=== PATIENT | male | born 1950 | race African-American/Black ===

== ENCOUNTER → 2020-08-23 15:43 | Outpatient (BNVA) | payer MEDICARE, MEDICAID, SELFPAY | PROVIDERS: PCP Internal Medicine; Referring Provider Internal Medicine; Visit Provider Urology | DX: Z76.89 Persons encountering health services in other specified circumstances (principal) | CPT/HCPCS: Q3014 ==

== ENCOUNTER → 2021-02-21 14:56 | Outpatient (BNVA) | payer MEDICARE, MEDICAID, SELFPAY | PROVIDERS: PCP Internal Medicine; Visit Provider Urology | DX: Z13.89 Encounter for screening for other disorder (principal) | CPT/HCPCS: 99212 ==

== ENCOUNTER → 2021-08-29 15:34 | Outpatient (BNVA) | payer MEDICARE, MEDICAID, SELFPAY | PROVIDERS: PCP Internal Medicine; Visit Provider Urology | CPT/HCPCS: Q3014 ==

== ENCOUNTER → 2022-03-09 13:12 | Outpatient (BNVA) | payer OTHER, MEDICAID, SELFPAY | PROVIDERS: PCP Internal Medicine; Visit Provider Urology | DX: E29.1 Testicular hypofunction (principal); N52.9 Male erectile dysfunction, unspecified | CPT/HCPCS: 99212 ==

== ENCOUNTER → 2022-09-18 08:29 | Outpatient (BNVA) | payer OTHER, MEDICAID, SELFPAY | PROVIDERS: PCP Internal Medicine; Visit Provider Urology | DX: E11.69 Type 2 diabetes mellitus with other specified complication (principal); N52.1 Erectile dysfunction due to diseases classified elsewhere | CPT/HCPCS: Q3014 ==

== ENCOUNTER → 2023-03-26 13:18 | Outpatient (BNVA) | payer OTHER, SELFPAY | PROVIDERS: PCP Internal Medicine; Visit Provider Urology | DX: E11.69 Type 2 diabetes mellitus with other specified complication (principal); E29.1 Testicular hypofunction; N52.1 Erectile dysfunction due to diseases classified elsewhere | CPT/HCPCS: 99212 ==

== ENCOUNTER 2023-09-24 15:21 | Outpatient (AMB) | payer OTHER, SELFPAY ==
--- NOTE | 2023-09-24 15:28 | MHC.OFFVIS ---
Intake Intake Visit Reasons: 6m/labs(set) Allergies lisinopril Allergy (Mild, Verified 03/26/23 13:32) coughing Medication List - Last Reconciled 09/24/23 by Wilbert Hernandez MD amlodipine 10 mg PO DAILY aspirin 81 mg PO DAILY blood sugar diagnostic As directed brimonidine-timolol 0.2-0.5 % 1 drp ophthalmic (eye) BID cholecalciferol (vitamin D3) 50 mcg PO DAILY cholecalciferol (vitamin D3) 50 mcg PO DAILY dapagliflozin propanediol (Farxiga) 10 mg PO DAILY ferrous sulfate (FeroSul) 0 mg PO flu vac 2019 [id number](PF) 60 mcg (15 mcg x 4)/0.5 mL 0.5 mL IM DIRECTED folic acid 1 mg PO DAILY furosemide 20 mg PO Q OTHER DAY ketorolac 0.5% 0 drps ophthalmic (eye) lancets As directed losartan 25 mg PO DAILY losartan 50 mg PO DAILY metformin 1,000 mg PO BID metoprolol succinate ER 25 mg PO DAILY naproxen 500 mg PO BID rosuvastatin 10 mg PO BEDTIME sitagliptin phosphate 50 mg PO DAILY spironolactone 25 mg PO DAILY tadalafil 5 mg PO DAILY 90 days tadalafil 20 mg PO ONCE PRN 30 days testosterone 100 mg transdermal DAILY 30 days HPI HPI Comments History of Present Illness Details Mike is a very pleasant male. He is a patient of Dr. Sullivan. He is seen for the following urologic conditions - hypogonadism - erectile dysfunction in setting of diabetes Telemedicine Evaluation 15 min Consultation [employer] Tato Video attempted Follow-up from daily tadalafil Improved erections Continued benefit from testosterone Stable with current 2 packets of testosterone daily Hypogonadism:?T stable. ?He presents today for further evaluation and followup of his hypogonadism. ?Initial symptoms include? erectile dysfunction? Yes ? decreased libido? Yes ? change in mood/depression? Yes ? in muscle size/strength? Yes ? increased fatigue/malaise? Yes ? increased abdominal fat? No ? tender breasts/gynecomastia? No ? hair loss? No ? osteopenia? No ?Associate conditions include? chronic pain with opioid use? Yes ?Laboratory results testosterone 11/06 - 83 ? 07/07 - testosterone 283, PSA 1.3 ? 12/08 , testosterone 290, PSA 0.9 ? 06/07 , testosterone 301, PSA 0.6, 12/09 T 694, PSA 1.0, HCT 39, 06/08 T 500 PSA 1.0 ? 01/07 T 650 PSA 1.0, 08/09 T 420 PSA 1.2, 02/08 T431 PSA 1.6, 08/10 T 310, 1.4, 01/09 T 240 P 1.8, 08/11 T 386 P 1.5, 02/10 600 1.2 42, 09/12 390 1.5 37 ?Current therapy includes gel/cream exogenous testosterone ? - patch - not interested in injectable ? - Exogenous patch causing scarring to skin ? - 06/07 increase to 2 packets. 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 ?Therapeutic plan continue current medication with laboratories? Erectile dysfunction: He presents today for for continued evaluation and management of erectile dysfunction. Symptoms have been present for/since many years. Current treatment includes Viagra/sildenafil. Treatment side effects include none. Prior therapies include oral medications. At this time he experiences erections are partial and adequate for vaginal penetration. Associated problems hypertension Yes diabetes Yes - multi oral agent dyslipidemia Yes - low intensity Overall he is satisfied with the current management. [facility] Medical History Glaucoma Chronic back pain Diabetes mellitus, type II Hyperlipidemia Hypogonadism in male Review of Systems Const All systems reviewed & are unremarkable except as noted in HPI and below Reports no additional complaints Resp Reports no additional complaints GI Reports no additional complaints Reports as per HPI Musc Reports no additional complaints Physical Exam Telemedicine evaluation Appropriate responses Regular breathing rate and rhythm HEENT Head: Yes normal to inspection Ears: hearing grossly normal bilaterally Eyes General: appearance normal, both eyes and all related structures Neck Neck: Yes normal visual inspection Chest Chest palpation & inspection: normal inspection of the chest Resp Effort & Inspection: normal respiratory effort and able to speak in complete sentences Assessment & Plan Assessment & Plan (1) Hypogonadism in male: Code(s): E29.1 - Testicular hypofunction (2) Erectile dysfunction associated with type 2 diabetes mellitus: Code(s): E11.69 - Type 2 diabetes mellitus with other specified complication; N52.1 - Erectile dysfunction due to diseases classified elsewhere Plan Renewal medications Six month follow-up labs Orders: Orders Prostate Specific Antigen 6 Months E29.1 - Testicular hypofunction Testosterone, Total 6 Months E29.1 - Testicular hypofunction Complete Blood Count no Diff 6 Months E29.1 - Testicular hypofunction Medications: Refilled tadalafil 5 mg PO DAILY 90 tabs 1RF sexual activity 90 days E11.69 - Type 2 diabetes mellitus with other specified complication, N52.1 - Erectile dysfunction due to diseases classified elsewhere tadalafil 20 mg PO ONCE PRN 30 tabs 1RF sexual activity 30 days E11.69 - Type 2 diabetes mellitus with other specified complication, N52.1 - Erectile dysfunction due to diseases classified elsewhere testosterone 100 mg transdermal DAILY 60 packets 5RF 30 days E29.1 - Testicular hypofunction Patient Instructions: Imaging studies, laboratory and physical exam results were discussed and reviewed in detail. No major barriers to patient understanding were identified. An opportunity to ask questions regarding the treatment plan was provided. All questions were answered. The patient expressed understanding and agreement with the above treatment plan. The patient is aware they should contact our office by phone for worsening of their current condition or the appearance of new urologic symptoms. Compliance is encouraged with any medications and followup testing that is ordered. It is a privilege to participate in the urologic care of your patient. If you have any questions or concerns regarding treatment for the above conditions, or other urologic issues, please do not hesitate to contact me. The office telephone contact is [phone]. This note is constructed using voice recognition software. While every effort has been made to ensure accuracy color printer operator errors may have been included. Yours sincerely, Dr Wilbert Hernandez MD, [facility] - Urology Providers of Expert, Compassionate Care for the Genitourinary System Telehealth Telehealth Location of provider rendering services: practice address Location of patient: address on file Patient Identification confirmed using: Name, : Yes Telehealth method: video Patient verbally consented to treatment: Yes Patient verbally consented to billing insurance company: Yes Patient informed of any privacy concerns related to visit: Yes Coding Level of Care Code Tele Est Pt Level 3 (74130) Diagnoses Hypogonadism in male E29.1 Erectile dysfunction associated with type 2 diabetes mellitus E11.69; N52.1
== END 2023-09-24 16:30 ==
LOC: HO.HUSH 15:21
PROVIDERS: PCP Internal Medicine; Visit Provider Urology
DX: E29.1 Testicular hypofunction (principal); E11.69 Type 2 diabetes mellitus with other specified complication; N52.1 Erectile dysfunction due to diseases classified elsewhere
CPT/HCPCS: 99213

== ENCOUNTER → 2023-09-24 15:21 | Outpatient (BNVA) | payer OTHER, SELFPAY | PROVIDERS: PCP Internal Medicine; Visit Provider Urology ==

== ENCOUNTER 2024-04-17 11:29 | Outpatient (AMB) | payer OTHER, SELFPAY ==
--- NOTE | 2024-04-17 11:32 | MHC.OFFVIS ---
Intake Visit Reasons: 6M Labs(set) Intake Note: Patient is present for 6 month f/u and labs Urology Medication:tasalafil,testosterone Antibiotic Allergy:none Blood Thinner:aspirin Operations Superintendent Required: No Allergies lisinopril Allergy (Mild, Verified 04/17/24 11:34) coughing Medication List - Last Reconciled 04/17/24 by Wilbert Hernandez MD amlodipine 10 mg PO DAILY aspirin 81 mg PO DAILY blood sugar diagnostic As directed brimonidine-timolol 0.2-0.5 % 1 drp ophthalmic (eye) BID cholecalciferol (vitamin D3) 50 mcg PO DAILY cholecalciferol (vitamin D3) 50 mcg PO DAILY cyanocobalamin (vitamin B-12) 1,000 mcg PO DAILY dapagliflozin propanediol (Farxiga) 10 mg PO DAILY ferrous sulfate (FeroSul) 0 mg PO flu vac 2020 [id number](PF) 60 mcg (15 mcg x 4)/0.5 mL 0.5 mL IM DIRECTED folic acid 1 mg PO DAILY furosemide 20 mg PO Q OTHER DAY ketorolac 0.5% 0 drps ophthalmic (eye) lancets As directed losartan 25 mg PO DAILY losartan 50 mg PO DAILY metformin 1,000 mg PO BID metoprolol succinate ER 25 mg PO DAILY naproxen 500 mg PO BID rosuvastatin 10 mg PO BEDTIME sitagliptin phosphate 50 mg PO DAILY spironolactone 25 mg PO DAILY tadalafil 20 mg PO ONCE PRN 30 days tadalafil 5 mg PO DAILY 90 days testosterone 100 mg transdermal DAILY 30 days ticagrelor (Brilinta) 90 mg PO BID HPI Comments Details: Mike is a very pleasant male. He is a patient of Dr. Sullivan. He is seen for the following urologic conditions - hypogonadism - erectile dysfunction in setting of diabetes Six-month review Testosterone laboratories within appropriate target range Continues with 5 mg daily and 20 mg on demand tadalafil Stable with current 2 packets of testosterone daily Tells me his diabetes is stable Hypogonadism:?He presents today for further evaluation and followup of his hypogonadism. ?Initial symptoms include? erectile dysfunction? Yes ? decreased libido? Yes ? change in mood/depression? Yes ? in muscle size/strength? Yes ? increased fatigue/malaise? Yes ?Associate conditions include? chronic pain with opioid use? Yes ?Laboratory results testosterone 11/06 - 83 ? 07/07 - testosterone 283, PSA 1.3 ? 12/08 , testosterone 290, PSA 0.9 ? 06/07 , testosterone 301, PSA 0.6, 12/09 T 694, PSA 1.0, HCT 39, 06/08 T 500 PSA 1.0 ? 01/07 T 650 PSA 1.0, 08/09 T 420 PSA 1.2, 02/08 T431 PSA 1.6, 08/10 T 310, 1.4, 01/09 T 240 P 1.8, 08/11 T 386 P 1.5, 02/10 600 1.2 42, 09/12 390 1.5 37, 03/13 531 2.1 41 ?Current therapy includes gel/cream exogenous testosterone ? - patch - not interested in injectable ? - Exogenous patch causing scarring to skin ? - 06/07 increase to 2 packets. 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 ?Therapeutic plan continue current medication with laboratories? Erectile dysfunction: He presents today for for continued evaluation and management of erectile dysfunction. Symptoms have been present for/since many years. Current treatment includes Viagra/sildenafil. Treatment side effects include none. Prior therapies include oral medications. At this time he experiences erections are partial and adequate for vaginal penetration. Associated problems hypertension Yes diabetes Yes - multi oral agent dyslipidemia Yes - low intensity Overall he is satisfied with the current management. [facility] Medical History Glaucoma Chronic back pain Diabetes mellitus, type II Hyperlipidemia Hypogonadism in male Review of Systems Const Denies chills and Denies fever(s) Card Reports no additional complaints and Denies syncope Resp Denies cough GI Denies abdominal pain and Denies heartburn Reports as per HPI and Denies change in libido Neuro Denies syncope Psych Denies change in libido Endo Denies change in libido Physical Exam Const General: cooperative, healthy appearing, comfortable and no acute distress Orientation/consciousness: patient oriented x3 HEENT Face and sinus: Yes normal facial exam Mouth: moist mucous membranes Neck Neck: Yes normal visual inspection, Yes full ROM and Yes trachea midline Chest Chest palpation & inspection: normal inspection of the chest Resp Effort & Inspection: normal respiratory effort, able to speak in complete sentences and no respiratory distress GI Inspection: Yes normal to inspection Back/Spine/Pelvis Cervical Spine: normal cervical lordosis Thoracic/Lumbar Spine: thoracic and lumbar spine normal to inspection Skin General skin exam: no rashes or lesions noted Neuro General: patient oriented x3, gait normal, tone normal and moves all extremities Extrem General: Yes normal to inspection and Yes capillary refill normal Assessment & Plan Assessment & Plan (1) Hypogonadism in male: Code(s): E29.1 - Testicular hypofunction Category: Medical (2) Erectile dysfunction associated with type 2 diabetes mellitus: Code(s): E11.69 - Type 2 diabetes mellitus with other specified complication; N52.1 - Erectile dysfunction due to diseases classified elsewhere Category: Medical Plan Six-month follow-up lab work tele Orders: Orders Prostate Specific Antigen 6 Months E29.1 - Testicular hypofunction Testosterone, Total 6 Months E29.1 - Testicular hypofunction Complete Blood Count no Diff 6 Months E29.1 - Testicular hypofunction Patient Instructions: Imaging studies, laboratory and physical exam results were discussed and reviewed in detail. No major barriers to patient understanding were identified. An opportunity to ask questions regarding the treatment plan was provided. All questions were answered. The patient expressed understanding and agreement with the above treatment plan. The patient is aware they should contact our office by phone for worsening of their current condition or the appearance of new urologic symptoms. Compliance is encouraged with any medications and followup testing that is ordered. It is a privilege to participate in the urologic care of your patient. If you have any questions or concerns regarding treatment for the above conditions, or other urologic issues, please do not hesitate to contact me. The office telephone contact is [phone]. This note is constructed using voice recognition software. While every effort has been made to ensure accuracy service advisor errors may have been included. Yours sincerely, Dr Wilbert Hernandez MD, [facility] - Urology Providers of Expert, Compassionate Care for the Genitourinary System Coding Level of Care Code Est Pt Level 3 (83564) Diagnoses Hypogonadism in male E29.1 Erectile dysfunction associated with type 2 diabetes mellitus E11.69; N52.1
== END 2024-04-17 11:52 | disposition home or self-care (01) ==
LOC: HO.HUSH 11:29
PROVIDERS: PCP Internal Medicine; Visit Provider Urology
DX: E29.1 Testicular hypofunction (principal); E11.69 Type 2 diabetes mellitus with other specified complication; N52.1 Erectile dysfunction due to diseases classified elsewhere
CPT/HCPCS: 99213

== ENCOUNTER → 2024-04-17 11:29 | Outpatient (BNVA) | payer OTHER, SELFPAY | PROVIDERS: PCP Internal Medicine; Visit Provider Urology | DX: E29.1 Testicular hypofunction (principal); E11.69 Type 2 diabetes mellitus with other specified complication; N52.1 Erectile dysfunction due to diseases classified elsewhere | CPT/HCPCS: 99212 ==

== ENCOUNTER 2024-10-08 08:36 | Outpatient (AMB) | payer OTHER, SELFPAY ==
--- NOTE | 2024-10-08 08:37 | A.OFFVIS_ITS ---
Intake Visit Reasons: 6m/PSA/TESTO/LABS(set) Intake Note: Patient is present for 6M/PSA/TESTO/LABS Urology Medication:TADALAFIL,TESTOSTERONE,VITAMIN B12 Antibiotic Allergy:NONE Blood Thinner:ASPIRIN Band Instrument Maker Required: No Allergies lisinopril Allergy (Mild, Verified 10/08/24 08:38) coughing HPI Comments Details: Mike is a very pleasant male. He is a patient of Dr. Sullivan. He is seen for the following urologic conditions - hypogonadism - erectile dysfunction in setting of diabetes Six-month review Telemedicine Evaluation 15 min Consultation [employer] Tato Video Testosterone laboratories within appropriate target range Continues with 5 mg daily and 20 mg on demand tadalafil Stable with current 2 packets of testosterone daily Continue interval surveillance Hypogonadism:?He presents today for further evaluation and followup of his hypogonadism. ?Initial symptoms include? erectile dysfunction? Yes ? decreased libido? Yes ? change in mood/depression? Yes ? in muscle size/strength? Yes ? increased fatigue/malaise? Yes ?Associate conditions include? chronic pain with opioid use? Yes ?Laboratory results testosterone 11/06 - ? 07/07 - testosterone 283, PSA 1.3 ? 12/08 , testosterone 290, PSA 0.9 ? 06/07 , testosterone 301, PSA 0.6, 12/09 T 694, PSA 1.0, HCT 39, 06/08 T 500 PSA 1.0 ? 01/07 T 650 PSA 1.0, 08/09 T 420 PSA 1.2, 02/08 T431 PSA 1.6, 08/10 T 310, 1.4, 01/09 T 240 P 1.8, 08/11 T 386 P 1.5, 02/10 600 1.2 42, 09/12 390 1.5 37, 03/13 531 2.1 41, 10/13 T 400 F 12.5 1.8 ?Current therapy includes gel/cream exogenous testosterone ? - patch - not interested in injectable ? - Exogenous patch causing scarring to skin ? - 06/07 increase to 2 packets. 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 ?Therapeutic plan continue current medication with laboratories? Erectile dysfunction: He presents today for for continued evaluation and management of erectile dysfunction. Symptoms have been present for/since many years. Current treatment includes Viagra/sildenafil. Treatment side effects include none. Prior therapies include oral medications. At this time he experiences erections are partial and adequate for vaginal penetration. Associated problems hypertension Yes diabetes Yes - multi oral agent dyslipidemia Yes - low intensity Overall he is satisfied with the current management. [facility] Medical History Glaucoma Chronic back pain Diabetes mellitus, type II Hyperlipidemia Hypogonadism in male Review of Systems Const All systems reviewed & are unremarkable except as noted in HPI and below Reports no additional complaints Resp Reports no additional complaints GI Reports no additional complaints Reports as per HPI Musc Reports no additional complaints Physical Exam Telemedicine evaluation Appropriate responses Regular breathing rate and rhythm HEENT Head: Yes normal to inspection Ears: hearing grossly normal bilaterally Eyes General: appearance normal, both eyes and all related structures Neck Neck: Yes normal visual inspection Chest Chest palpation & inspection: normal inspection of the chest Resp Effort & Inspection: normal respiratory effort and able to speak in complete sentences Telehealth Telehealth Telehealth Platform: [employer] Location of provider rendering services: practice address Location of patient: address on file Patient Identification confirmed using: Name, : Yes Telehealth method: video Patient verbally consented to treatment: Yes Patient verbally consented to billing insurance company: Yes Patient informed of any privacy concerns related to visit: Yes Minutes spent on Phone/Video with Pt.: 15 Assessment & Plan Assessment & Plan (1) Erectile dysfunction associated with type 2 diabetes mellitus: Code(s): E11.69 - Type 2 diabetes mellitus with other specified complication; N52.1 - Erectile dysfunction due to diseases classified elsewhere Category: Medical (2) Hypogonadism in male: Code(s): E29.1 - Testicular hypofunction Category: Medical Plan Refill medications Six-month follow-up lab work Medications: Refilled tadalafil 5 mg PO DAILY 90 days 90 tabs 1RF sexual activity E11.69 - Type 2 diabetes mellitus with other specified complication, N52.1 - Erectile dysfunction due to diseases classified elsewhere testosterone 100 mg transdermal DAILY 30 days 60 packets 5RF E29.1 - Testicular hypofunction tadalafil 20 mg PO ONCE 30 days PRN 30 tabs 1RF sexual activity E11.69 - Type 2 diabetes mellitus with other specified complication, N52.1 - Erectile dysfunction due to diseases classified elsewhere Patient Instructions: Imaging studies, laboratory and physical exam results were discussed and reviewed in detail. No major barriers to patient understanding were identified. An opportunity to ask questions regarding the treatment plan was provided. All questions were answered. The patient expressed understanding and agreement with the above treatment plan. The patient is aware they should contact our office by phone for worsening of their current condition or the appearance of new urologic symptoms. Compliance is encouraged with any medications and followup testing that is ordered. It is a privilege to participate in the urologic care of your patient. If you have any questions or concerns regarding treatment for the above conditions, or other urologic issues, please do not hesitate to contact me. The office telephone contact is [phone]. This note is constructed using voice recognition software. While every effort has been made to ensure accuracy supervisor microfilm duplicating unit errors may have been included. Yours sincerely, Dr Wilbert Hernandez MD, [facility] - Urology Providers of Expert, Compassionate Care for the Genitourinary System Coding Level of Care Code Tele Est Pt Level 3 (28185) Diagnoses Erectile dysfunction associated with type 2 diabetes mellitus E11.69; N52.1 Hypogonadism in male E29.1
== END 2024-10-08 15:08 | disposition home or self-care (01) ==
LOC: HO.HUSH 08:36
PROVIDERS: PCP Internal Medicine; Visit Provider Urology
DX: E11.69 Type 2 diabetes mellitus with other specified complication (principal); N52.1 Erectile dysfunction due to diseases classified elsewhere; E29.1 Testicular hypofunction
CPT/HCPCS: 99213

== ENCOUNTER 2025-04-15 11:21 | Outpatient (AMB) | payer OTHER, SELFPAY ==
--- NOTE | 2025-04-15 11:28 | MHC.OFFVIS ---
Intake Visit Reasons: 6m followup/PSA labs Intake Note: Patient is present for 6M/LABS Urology Medication:TESTOSTERONE,TADALAFIL,VITAMIN B12 Antibiotic Allergy:NONE Blood Thinner:ASPIRIN Dyno Technician Required: No Allergies lisinopril Allergy (Mild, Verified 04/15/25 11:29) coughing HPI Comments Details: Mike is a very pleasant male. He is a patient of Dr. Sullivan. He is seen for the following urologic conditions - hypogonadism - erectile dysfunction in setting of diabetes Six-month review Testosterone laboratories within appropriate target range Continues with 5 mg daily and 20 mg on demand tadalafil Stable with current 2 packets of testosterone daily Continue interval surveillance Hypogonadism:?He presents today for further evaluation and followup of his hypogonadism. ?Initial symptoms include? erectile dysfunction? Yes ? decreased libido? Yes ? change in mood/depression? Yes ? in muscle size/strength? Yes ? increased fatigue/malaise? Yes ?Associate conditions include? chronic pain with opioid use? Yes ?Laboratory results testosterone 11/06 - 83 ? 07/07 - testosterone 283, PSA 1.3 ? 12/08 , testosterone 290, PSA 0.9 ? 06/07 , testosterone 301, PSA 0.6, 12/09 T 694, PSA 1.0, HCT 39, 06/08 T 500 PSA 1.0 ? 01/07 T 650 PSA 1.0, 08/09 T 420 PSA 1.2, 02/08 T431 PSA 1.6, 08/10 T 310, 1.4, 01/09 T 240 P 1.8, 08/11 T 386 P 1.5, 02/10 600 1.2 42, 09/12 390 1.5 37, 03/13 531 2.1 41, 10/13 T 400 F 12.5 1.8, 04/14 360 2.2 38 ?Current therapy includes gel/cream exogenous testosterone ? - patch - not interested in injectable ? - Exogenous patch causing scarring to skin ? - 06/07 increase to 2 packets. 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 ?Therapeutic plan continue current medication with laboratories? Erectile dysfunction: He presents today for for continued evaluation and management of erectile dysfunction. Symptoms have been present for/since many years. Current treatment includes Viagra/sildenafil. Treatment side effects include none. Prior therapies include oral medications. At this time he experiences erections are partial and adequate for vaginal penetration. Associated problems hypertension Yes diabetes Yes - multi oral agent dyslipidemia Yes - low intensity Overall he is satisfied with the current management. [facility] Medical History Glaucoma Chronic back pain Diabetes mellitus, type II Hyperlipidemia Hypogonadism in male Review of Systems Const Denies chills and Denies fever(s) Card Reports no additional complaints and Denies syncope Resp Denies cough GI Denies abdominal pain and Denies heartburn Reports as per HPI and Denies change in libido Neuro Denies syncope Psych Denies change in libido Endo Denies change in libido Physical Exam Const General: cooperative, healthy appearing, comfortable and no acute distress Orientation/consciousness: patient oriented x3 HEENT Face and sinus: Yes normal facial exam Mouth: moist mucous membranes Neck Neck: Yes normal visual inspection, Yes full ROM and Yes trachea midline Chest Chest palpation & inspection: normal inspection of the chest Resp Effort & Inspection: normal respiratory effort, able to speak in complete sentences and no respiratory distress GI Inspection: Yes normal to inspection Back/Spine/Pelvis Cervical Spine: normal cervical lordosis Thoracic/Lumbar Spine: thoracic and lumbar spine normal to inspection Skin General skin exam: no rashes or lesions noted Neuro General: patient oriented x3, gait normal, tone normal and moves all extremities Extrem General: Yes normal to inspection and Yes capillary refill normal Assessment & Plan Assessment & Plan (1) Erectile dysfunction associated with type 2 diabetes mellitus: Code(s): E11.69 - Type 2 diabetes mellitus with other specified complication; N52.1 - Erectile dysfunction due to diseases classified elsewhere Category: Medical (2) Hypogonadism in male: Code(s): E29.1 - Testicular hypofunction Category: Medical Plan Six-month follow-up lab work Orders: Orders Testosterone, Total 6 Months E29.1 - Testicular hypofunction Blood Urea Nitrogen 6 Months E29.1 - Testicular hypofunction Prostate Specific Antigen 6 Months E29.1 - Testicular hypofunction Medications: Refilled testosterone 100 mg transdermal DAILY 60 packets 5RF 30 days E29.1 - Testicular hypofunction Patient Instructions: This note is constructed using voice recognition software. While every effort has been made to ensure accuracy client account representative errors may have been included. Imaging studies, laboratory and physical exam results were discussed and reviewed in detail. No major barriers to patient understanding were identified. An opportunity to ask questions regarding the treatment plan was provided. All questions were answered. The patient expressed understanding and agreement with the above treatment plan. The patient is aware they should contact our office by phone for worsening of their current condition or the appearance of new urologic symptoms. Compliance is encouraged with any medications and followup testing that is ordered. It is a privilege to participate in the urologic care of your patient. If you have any questions or concerns regarding treatment for the above conditions, or other urologic issues, please do not hesitate to contact me. The office telephone contact is [phone]. Sincerely, Dr Wilbert Hernandez MD, [facility] - Urology Compassionate Specialist Care for the Genitourinary System Coding Level of Care Code Est Pt Level 3 (92340) Complex EM visit Add On G2211 Diagnoses Erectile dysfunction associated with type 2 diabetes mellitus E11.69; N52.1 Hypogonadism in male E29.1
== END 2025-04-15 11:59 | disposition home or self-care (01) ==
LOC: HO.HUSH 11:21
PROVIDERS: PCP Internal Medicine; Visit Provider Urology
DX: E11.69 Type 2 diabetes mellitus with other specified complication (principal); N52.1 Erectile dysfunction due to diseases classified elsewhere; E29.1 Testicular hypofunction
CPT/HCPCS: 99213; G2211

== ENCOUNTER → 2025-04-15 11:21 | Outpatient (BNVA) | payer OTHER, SELFPAY | PROVIDERS: PCP Internal Medicine; Visit Provider Urology | DX: E29.1 Testicular hypofunction (principal) | CPT/HCPCS: 99212 ==

== ENCOUNTER 2025-10-12 09:13 | Outpatient (AMB) | payer OTHER, SELFPAY ==
--- OUTSIDE RECORDS SUMMARY | 2024-07-23 07:14 | XMS_ITS | Encounter Summary ---
Author Organization [facility] Address [address] [place] [address] Care Team Providers Care Leasing Coordinator Name Role Phone Jules Sullivan MD Primary Care Provider [phone] Encounter Details Date Type Department Care Team (Late st Contact Info) Description 07/23/2024 8:14 AM EDT Hospital Encounter TH HISTORIC ENCOUNTERS [facility] CONVERSION ONLY Social History Tobacco Use Types Packs/Day Years Used Date Smoking Tobacco: Every Day Cigarettes Smokeless Tobacco: Never Alcohol Use Standard Drinks/Week Comments Yes 0 (1 standard drink = 0.6 oz pur e alcohol) occasional Interpersonal Safety Answer Date Record ed Physical Abuse Unrecognized value 12/04/2024 Verbal Abuse Unrecognized value 12/04/2024 Sex and Gender Information Value Date Recorded Sex Assigned at Male 12/03/2024 8:32 AM EST Legal Sex Male 9:57 AM EST Gender Identity Male 12/03/2024 8:32 AM EST Sexual Orientation Straight 12/03/2024 8: 32 AM EST documented as of this encounter Last Filed Vital Signs Vital Sign Reading Time Taken Comments Blood Pressure - - Pulse - - Temperature - - Respiratory Rate - - Oxygen Saturation - - Inhaled Oxygen Concentration - - Weight 99.3 kg (219 lb) 11/22/2023 9:08 AM EST Height 175.3 cm (5' 9 ) 11/22/2023 9:08 AM EST Body Mass Index 32.34 11/22/2023 9:08 AM EST documented in this encounter Progress Notes * Historical, Notes Results - 07/23/2024 8:30 AM EDT Arrived amb for B12 inj, stable assessment. B12 administered into RIGHT arm, well tolerated, reminder given for next appt. Left amb, stable at D/C. documented in this encounter Plan of Treatment Upcoming Encounters Date Type Department Care Team (Late st Contact Info) Description 10/27/2025 8:30 AM EST Appointment [facility] [address] [facility] 2nd [place] [phone] 11/24/2025 9:00 AM EST Office Visit [facility] Hematology Oncology [address] [place] [phone] Shira-Blanca Clarke MD [address] [place] [phone] 01/20/2026 8:00 AM EDT Ancillary Procedure [facility] [address] [facility] [address] [place] [phone] documented as of this encounter Visit Diagnoses Not on filedocumented in this encounter Care Teams Leasing Coordinator Relationship Specialty Start Date End Date Jules Sullivan MD [address] [place] [id number] PCP - General Internal Medicine 06/20/17 documented as of this encounter
--- OUTSIDE RECORDS SUMMARY | 2024-08-20 07:18 | XMS_ITS | Encounter Summary ---
Author Organization [facility] Address [address] [place] [address] Care Team Providers Care Process Tech Name Role Phone Jules Sullivan MD Primary Care Provider [phone] Encounter Details Date Type Department Care Team (Late st Contact Info) Description 08/20/2024 8:18 AM EDT Hospital Encounter TH HISTORIC ENCOUNTERS [...] Progress Notes * Historical, Notes Results - 08/20/2024 8:28 AM EDT 0828- Patient arrives, ambulatory to unit using a cane for monthly B12 injection. He has been??feeling well. He offers no concerns or complaints today and says his energy, appetite, etc. have been good. Injection released from treatment plan to pharmacy. Patient given a gingerale per his request while awaiting the injection to be verified by pharmacy. 0839-??B12 injection given into the left upper arm??via deep subcutaneous route. Patient tolerated this well. Band-aid applied to site. Next??monthly??appointment??booked previously but, re-printed and given to patient upon discharge per his request. Of note, this was booked a week late due to patient being due on and a busy holiday week in the infusion room. He left the unit stable,using cane with steady gait visualized upon discharge. documented in this encounter Plan of Treatment Upcoming Encounters Date Type Department Care Team (Late st Contact Info) Description 10/27/2025 8:30 AM EST Appointment [facility] [address] [phone] 11/24/2025 9:00 AM EST Office Visit [facility] Hematology Oncology [address] [place] [phone] Shira-Blanca Clarke MD [address] [place] [address] 01/20/2026 8:00 AM EDT Ancillary Procedure [facility] [address] [facility] [address] [place] [address] documented as of this encounter Visit Diagnoses Not on filedocumented in this encounter Care Teams Process Tech Relationship Specialty Start Date End Date Jules Sullivan MD [address] [place] [id number] PCP - General Internal Medicine 06/20/17 documented as of this encounter
--- NOTE | 2025-10-12 09:37 | MHC.OFFVIS ---
Intake Visit Reasons: 6m/ Labs/ SET ( NO UA ) Intake Note: Patient is present for 6M follow up Urology Medication:TESTOSTERONE,TADALAFIL, Antibiotic Allergy:NONE Blood Thinner:ASPIRIN Labs done 10/01/25: Total Testosterone 580, BUN 20 Senior Internet Sales Consultant Required: No Accompanied by: Self / Same As Patient Allergies lisinopril Allergy (Mild, Verified 10/12/25 09:39) coughing HPI Comments Details: Mike is a very pleasant male. He is a patient of Dr. Sullivan. He is seen for the following urologic conditions - hypogonadism - erectile dysfunction in setting of diabetes Six-month review - all stable Testosterone laboratories within appropriate target range Continues with 5 mg daily and 20 mg on demand tadalafil Stable with current 2 packets of testosterone daily Continue interval surveillance Hypogonadism:?He presents today for further evaluation and followup of his hypogonadism. ?Initial symptoms include? erectile dysfunction? Yes ? decreased libido? Yes ? change in mood/depression? Yes ? in muscle size/strength? Yes ? increased fatigue/malaise? Yes ?Associate conditions include? chronic pain with opioid use? Yes ?Laboratory results testosterone 11/06 - ? 07/07 - testosterone 283, PSA 1.3 ? 12/08 , testosterone 290, PSA 0.9 ? 06/07 , testosterone 301, PSA 0.6, 12/09 T 694, PSA 1.0, HCT 39, 06/08 T 500 PSA 1.0 ? 01/07 T 650 PSA 1.0, 08/09 T 420 PSA 1.2, 02/08 T431 PSA 1.6, 08/10 T 310, 1.4, 01/09 T 240 P 1.8, 08/11 T 386 P 1.5, 02/10 600 1.2 42, 09/12 390 1.5 37, 03/13 531 2.1 41, 10/13 T 400 F 12.5 1.8, 04/14 360 2.2 38 - 10/14 T 580 ?Current therapy includes gel/cream exogenous testosterone ? - patch - not interested in injectable ? - Exogenous patch causing scarring to skin ? - 06/07 increase to 2 packets. 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 ?Therapeutic plan continue current medication with laboratories? Erectile dysfunction: He presents today for for continued evaluation and management of erectile dysfunction. Symptoms have been present for/since many years. Current treatment includes Viagra/sildenafil. Treatment side effects include none. Prior therapies include oral medications. At this time he experiences erections are partial and adequate for vaginal penetration. Associated problems hypertension Yes diabetes Yes - multi oral agent dyslipidemia Yes - low intensity Overall he is satisfied with the current management. [facility] Medical History Glaucoma Chronic back pain Diabetes mellitus, type II Hyperlipidemia Hypogonadism in male Review of Systems Const Denies chills and Denies fever(s) Card Reports no additional complaints and Denies syncope Resp Denies cough GI Denies abdominal pain and Denies heartburn Reports as per HPI and Denies change in libido Neuro Denies syncope Psych Denies change in libido Endo Denies change in libido Physical Exam Const General: cooperative, healthy appearing, comfortable and no acute distress Orientation/consciousness: patient oriented x3 HEENT Face and sinus: Yes normal facial exam Mouth: moist mucous membranes Neck Neck: Yes normal visual inspection, Yes full ROM and Yes trachea midline Chest Chest palpation & inspection: normal inspection of the chest Resp Effort & Inspection: normal respiratory effort, able to speak in complete sentences and no respiratory distress GI Inspection: Yes normal to inspection Back/Spine/Pelvis Cervical Spine: normal cervical lordosis Thoracic/Lumbar Spine: thoracic and lumbar spine normal to inspection Skin General skin exam: no rashes or lesions noted Neuro General: patient oriented x3, gait normal, tone normal and moves all extremities Extrem General: Yes normal to inspection and Yes capillary refill normal Assessment & Plan Assessment & Plan (1) Erectile dysfunction associated with type 2 diabetes mellitus: Code(s): E11.69 - Type 2 diabetes mellitus with other specified complication; N52.1 - Erectile dysfunction due to diseases classified elsewhere Category: Medical (2) Hypogonadism in male: Code(s): E29.1 - Testicular hypofunction Category: Medical Plan Six-month follow-up lab work Continue interval surveillance Orders: Orders Prostate Specific Antigen 5 Months E29.1 - Testicular hypofunction Hematocrit 5 Months E29.1 - Testicular hypofunction Testosterone, Total 5 Months E29.1 - Testicular hypofunction Medications: Refilled tadalafil 5 mg PO DAILY 90 tabs 1RF sexual activity 90 days E11.69 - Type 2 diabetes mellitus with other specified complication, N52.1 - Erectile dysfunction due to diseases classified elsewhere testosterone 100 mg transdermal DAILY 60 packets 5RF 30 days E29.1 - Testicular hypofunction Patient Instructions: This note is constructed using voice recognition software. While every effort has been made to ensure accuracy winery worker errors may have been included. Imaging studies, laboratory and physical exam results were discussed and reviewed in detail. No major barriers to patient understanding were identified. An opportunity to ask questions regarding the treatment plan was provided. All questions were answered. The patient expressed understanding and agreement with the above treatment plan. The patient is aware they should contact our office by phone for worsening of their current condition or the appearance of new urologic symptoms. Compliance is encouraged with any medications and followup testing that is ordered. It is a privilege to participate in the urologic care of your patient. If you have any questions or concerns regarding treatment for the above conditions, or other urologic issues, please do not hesitate to contact me. The office telephone contact is [phone]. Sincerely, Dr Wilbert Hernandez MD, [facility] - Urology Compassionate Specialist Care for the Genitourinary System Coding Level of Care Code Est Pt Level 3 (91881) Add On Problem Visit Only Diagnoses Erectile dysfunction associated with type 2 diabetes mellitus E11.69; N52.1 Hypogonadism in male E29.1
--- OUTSIDE RECORDS SUMMARY | 2025-10-12 09:52 | XMS_ITS | Continuity of Care Document ---
Author Organization [facility] Address [address] [place] [address] Assessment No assessment recorded. Plan of Treatment Reminders Order Date Submit Date Provider Last Modified By Organization Details Last Modified Time Details Appointments Routine 15 2025 09:00A M Jarocho Haile DPM Not available Not available Not available Lab None recorded . Referral None recorded . Procedures None recorded . Surgeries None recorded . Imaging None recorded . Medication Orders None recorded . Patient TargetsNo targets recorded. Patient InstructionsNo instructions recorded. Reason for Referral None Reported. Problems Name Problem SNOMED Code Status Onset Date Resolution Date Notes Provider Name and Address Organization Details Recorded Time Diabetic foot examination Active 2024 Mary Rios [facility] 08:49:01 Peripheral neuropathy due to type 2 diabetes mellitus 4734055328441 Active 2024 Jarocho Haile DPM [address], [place], [address], [facility] 09:32:46 Onychomycos is 751880891 Active 2024 Jarocho Haile DPM [address], [place], [address], [facility] 09:32:48 Callosity 119677787 Active 2024 Jarocho Haile DPM [address], [place], [address], [facility] 5 09:32:55 Problem Notes None recorded. Procedures Surgical History Date Name Laterality Status Provider Name and Address Organization Details Recorded Time Nail Debridement completed Jarocho Haile, ARSALAN [address] [place], [address], [facility] 09/23/2025 09:32:38 total replacement of hip completed Mary Rios [facility] 09/23/2025 08:50:15 Imaging Results None recorded. Procedure Notes None recorded. Medical Equipment None Reported. Allergies Allergen ID Allergen Name Allergen Category Reaction Reaction Severity Criticality Documentation Date Start Date Code Code System Note Provider Name and Address Organization Details Recorded Time 303 lisinopri l medicatio n Not available Not available high 09/23/20252016 95977 RxNorm Other React ion(s ): Other (See Comme nts) cough Not Available nicholas - External Data Service - prod 08:39:17 Medications Name Sig Start Date Stop Date Status Note LastModified by Organization Details LastModified Time losartan 50 mg tablet TAKE 1 TABLET BY MOUTH EVERY DAY active Not Available Not Available No t Available metoprolol succinate ER 50 mg tablet,exten ded release 24 hr TAKE 1 TABLET BY MOUTH EVERY DAY active Not Available Not Available No t Available FreeStyle Lancets 28 gauge USE DIRECTED TO CHECK BLOOD SUAGR EVERY DAY active Not Available Not Available No t Available cyanocobalam in (vit B-12) 1,000 mcg tablet TAKE 1 TABLET BY MOUTH DAILY active Not Available Not Available Not Available aspirin 81 mg tablet,delay ed release TAKE 1 TABLET BY MOUTH EVERY DAY active Not Available Not Available No t Available spironolacto ne 25 mg tablet TAKE 1 TABLET BY MOUTH DAILY active Not Available Not Available Not Available amlodipine 10 mg tablet TAKE 1 TABLET BY MOUTH EVERY DAY active Not Available Not Available No t Available metformin 1,000 mg tablet TAKE 1 TABLET BY MOUTH TWICE DAILY active Not Available Not Available No t Available brimonidine 0.2 % eye drops INSTILL 1 DROP IN BOTH EYES THREE TIMES DAILY active Not Available Not Available No t Available bisacodyl 5 mg tablet,delay ed release TAKE 2 TABLETS BY MOUTH RIGHT BEFORE BEGINNING BOWEL PREP. SEE INSTRUCTION D GIVEN BY THE OFFICE active Not Available Not Available N ot Available timolol maleate 0.5 % eye drops INSTILL 1 DROP IN BOTH EYES TWICE DAILY active Not Available Not Available Not Available testosterone 1 % (50 mg/5 gram) transdermal gel packet APPLY 2 PACKETS TOPICALLY ONCE DAILY FOR 30 DAYS active Not Available Not Available Not Available rosuvastatin 20 mg tablet TAKE 1 TABLET BY MOUTH DAILY active Not Available Not Available Not Available tadalafil 5 mg tablet TAKE ONE TABLET BY MOUTH EVERY DAY FOR SEXUAL ACTIVITY active Not Available Not Available No t Available tadalafil 20 mg tablet TAKE ONE TABLET BY MOUTH EVERY DAY NEEDED FOR SEXUAL ACTIVITY active Not Available Not Available No t Available FreeStyle Lite Strips USE DIRECTED TWICE DAILY active Not Available Not Available Not Available FeroSul 325 mg (65 mg iron) tablet TAKE 1 TABLET BY MOUTH EVERY OTHER DAY active Not Available Not Available No t Available cholecalcife rol (vitamin D3) 50 mcg (2,000 unit) tablet TAKE 1 TABLET BY MOUTH DAILY active Not Available Not Available Not Available Brilinta 90 mg tablet TAKE 1 TABLET BY MOUTH TWICE DAILY active Not Available Not Available No t Available Farxiga 10 mg tablet TAKE 1 TABLET BY MOUTH EVERY DAY active Not Available Not Available No t Available Vitals None Recorded Social History Question Answer Notes LastModified by [employer] ion Details LastModified Time Tobacco Smoking Status Never Smoker Mary Rios [facility] 09/23/2025 08:52:03 Are You Able To Consume Regular Meals Throughout The Day? Yes Information not available 09/23/2025 Do You Have An Advance Directive? No Information not available 09/23/2025 Was Brief Alcohol Counseling Given Today? No Information not available 09/23/2025 Have You Ever Been Counseled For Unhealthy Alcohol Use? No Information not available 09/23/2025 What Is Your Relationship Status? Single Information not available 09/23/2025 Sex: Unknown Functional Status Question Answer Note LastModified by Organizat ion Details LastModified Time Do you or have you ever used any other forms of tobacco or nicotine? No Information not available 09/23/2025 What is your level of alcohol consumption? Occasional Information not available 09/23/2025 Do you or have you ever used any nicotine-free cigarettes, vape, or chewing tobacco? No Information not available 09/23/2025 Mental Status None recorded. Family History Nothing Reported. Medical History Condition Response Diabetes Y Arthritis Y Hypertension Y Past Encounters Encounter ID Performer Location Encounter Start Date Encounter Closed Date Diagnosis/Indication Diagnosis SNOMED-CT Code Diagnosis ICD10 Code Diagnosis IMO Codes Diagnosis Note [id number] [facility] [address] [facility] [facility] [address] [place] [address] 09/23/2025 08:42:51 09/23/2025 09:02:48 Peripheral neuropathy due to type 2 diabetes mellitus 0610117953 107 E11.42 1429860 Onychomycosis 665875011 B35.1 82287 Callosity [id number] L84 48900 Health Concerns Section Related Observation LastModified by Organization Detai ls LastModified Time None Recorded Concern Status LastModified by Organization Details LastModified Time None Recorded Payers Encounter Date Sequence Insurance Name Policy Number Policy Griffin Covered Member ID Griffin Member ID Guarantor Name 09/23/2025 1 [facility] - DOS ON OR AFTER 2023 - DUAL ELIGIBLE - SKILLED NURSING OPTIONS AND ONE CARE (MEDICARE REPLACEMENT/ADV ANTAGE - HMO) Mike Brian [id number] Notes Date Note Type Note Provider Name and Address Organization Details Recorded Time 09/23/2025 text/html The patient is seen today for a chief concern of painful elongated thickened toenails and multiple painful calluses. The patient reports the condition has been present for eyas. the patient is unable to perform his own carre. Jarocho Haile DPM [address] [place], [address], [facility] 09/23/2025 09:33:27
--- OUTSIDE RECORDS SUMMARY | 2025-10-12 09:53 | XMS_ITS | Data Portability ---
Author Organization [facility] Address [address] [place] [address] Assessment No assessment recorded. Plan of Treatment [...] Diabetic foot examination Active 2024 Mary Rios [facility] 5 08:49:01 Peripheral neuropathy due to type 2 diabetes mellitus 4630828831045 Active 2024 Jarocho Haile DPM [address] [place], [address], [facility] 5 09:32:46 Onychomycos is 162544789 Active 2024 Jarocho Haile DPM [address] [place], [address], [facility] 5 09:32:48 Callosity 294381511 Active 2024 Jarocho Haile DPM [address] [place], [address], [facility] 5 09:32:55 Problem Notes None recorded. Procedures Surgical History Date Name Laterality Status Provider Name and Address Organization Details Recorded Time 5 Nail Debridement completed Jarocho Haile DPM [address] [place], [address], [place] [facility] 09/23/2025 09:32:38 total replacement of hip completed Mary Rios [facility] 09/23/2025 08:50:15 Imaging Results None recorded. Procedure Notes None recorded. Medical Equipment None Reported. Allergies Allergen ID Allergen Name Allergen Category Reaction Reaction Severity Criticality Documentation Date Start Date Code Code System Note Provider Name and Address Organization Details Recorded Time 303 lisinopri l medicatio n Not available Not available high 09/23/20252016 67268 RxNorm Other React ion(s ): Other (See [...] Social History Question Answer Notes LastModified by [employer] Details LastModified Time Tobacco Smoking Status Never Smoker Mary rivers [facility] 09/23/2025 08:52:03 Are You [...] [address] [facility] [address] [facility] [address] [facility] [place] [address] 09/23/2025 08:42:51 09/23/2025 09:02:48 Peripheral neuropathy due to type 2 diabetes mellitus [id number] 107 E11.42 9320438 Onychomycosis 517381341 B35.1 09180 Callosity [id number] L84 83968 Health Concerns Section Related Observation LastModified by Organization Detai ls LastModified Time None Recorded Concern Status LastModified by Organization Details LastModified Time None Recorded Advance Directives Directive N: Payers Insurance Date Sequence Insurance Name Policy Number Policy Griffin Covered Member ID Griffin Member ID Guarantor Name 10/06/2025 1 [facility] - DOS ON OR AFTER 2023 - DUAL ELIGIBLE - CORRECTION OPTIONS AND ONE CARE (MEDICARE REPLACEMENT/ADV ANTAGE - HMO) Mike Brian [id number] Notes Date Note Type Note Provider Name and Address Organization Details Recorded Time 09/23/2025 text/html The patient is seen today for a chief concern of painful elongated thickened toenails and multiple painful calluses. The patient reports the condition has been present for eyas. the patient is unable to perform his own carre. Jarocho Haile DPM [address] [place] [address], [address], [facility] 09/23/2025 09:33:27
--- OUTSIDE RECORDS SUMMARY | 2025-10-12 09:53 | XMS_ITS | Clinical Summary ---
Author Organization [facility] Address [address] [place] [address] Phone Care Team Providers Care Desk Lieutenant Name Role Phone Jules Sullivan MD Primary Care Provider [phone] Allergies Active Allergy Reactions Criticality Noted Date Comments Lisinopril Medium 06/19/2017 Other Reaction(s): Other (See Comments) cough Medications amLODIPine (NORVASC) 10 mg tablet Take 1 tablet (10 mg total) by mouth daily. Active aspirin 81 mg EC tablet Take 1 tablet (81 mg total) by mouth daily. Active brimonidine-heather loL (COMBIGAN) 0.2-0.5 % ophthalmic solution Administer 1 drop into both eyes 3 (three) times a day. Active dapagliflozin propanediol (Farxiga) 10 mg tablet 1 tablet (10 mg total) 1 (one) time each day. Active losartan (COZAAR) 50 mg tablet Take 1 tablet (50 mg total) by mouth daily. Active metFORMIN (GLUCOPHAGE) 1,000 mg tablet Take 1 tablet (1,000 mg total) by mouth 2 (two) times a day with meals. Active spironolactone (ALDACTONE) 25 mg tablet Take 1 tablet (25 mg total) by mouth daily. Active timolol (TIMOPTIC) 0.5 % ophthalmic solution Administer 1 drop into both eyes 2 (two) times a day. Active tadalafiL (CIALIS) 5 mg tablet 1 tablet (5 mg total) 1 (one) time each day if needed. Active cholecalciferol (VITAMIN D-3) 50 mcg (2,000 unit) capsule Take 1 capsule (2,000 Units total) by mouth 1 (one) time each day. 4 Active FreeStyle Lancets 28 gauge lancets USE DIRECTED TO CHECK BLOOD SUAGR EVERY DAY 4 Active testosterone (ANDROGEL) 1 % (50 mg/5 gram) gel in packet 4 Active blood sugar diagnostic (FreeStyle Lite Strips) test strip 2 (two) times a day. 4 Active furosemide (LASIX) 20 mg tablet TAKE 1 TABLET(20 MG) BY MOUTH EVERY OTHER DAY 45 tablet 2 5 Active metoprolol succinate (TOPROL-XL) 50 mg 24 hr tablet Take 1 tablet (50 mg total) by mouth 1 (one) time each day. Do not crush or chew. 90 tablet 1 5 Active rosuvastatin (CRESTOR) 20 mg tablet Take 1 tablet (20 mg total) by mouth 1 (one) time each day. 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 Last echocardiogram showed LVEF of 45-50%. He has an AICD in place. He denies any clinical symptoms of heart failure and he appears euvolemic on examination. He continues on GDMT with farxiga, metoprolol, spironolactone, losartan and furosemide. No changes to his medical therapies. I've asked the patient to call if they develop worsening symptoms of heart failure such as increased shortness of breath, new or worsening cough, increased swelling in the legs or ankles, or weight gain of more than 2 pounds in one day or 4 pounds in one week. Coronary artery disease invo lving [place] coronary artery of [place] heart without angina pectoris 12/31/2024 Assessment & Plan (07/05/2025 8:54 AM EDT): Patient has history of coronary artery disease s/p LAD stenting in the past. He denies any exertional anginal symptoms. He continues on cardioprotective medical therapy with aspirin, statin and beta marta. I have reviewed with the patient the importance of a heart healthy lifestyle which includes eating a low-fat low-salt diet, getting regular exercise, maintaining a healthy weight, not smoking, and following up with routine medical care. Assessment & Plan (12/31/2024 8:31 AM EDT): Patient with history of single-vessel angioplasty in the past status post stent no recurrent angina asymptomatic at this time continue risk factor modification The above note was prepared with the help of voice recognition software. Please excuse any grammatical or spelling errors that may have occurred HTN (hypertension) 12/04/2024 Assessment & Plan (07/05/2025 8:54 AM EDT): BP is well controlled with reading today of 110/66. Continue with present medical therapies. 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 On aggressive guideline directed therapy ejection fraction is between 45 and 50% patient is euvolemic no change in therapy at this time Orders: ECG 12 lead Encounters Date Type Department Care Team Description 10/01/2025 7:45 AM EST Lab Draw Station - [address] [facility] [address] [place] [address] Testicular hypofunction; Screening for malignant neoplasm of prostate 10/01/2025 Telephone Internal Medicine - [place] [address] [facility] [address] [place] [phone] Vick Madison MD 09/29/2025 8:16 AM EST - 09/29/2025 11:59 PM EST Hospital Encounter [address] [phone] Maldonadoramonia-Iy Blanca zapata MD Other dietary vitamin B12 deficiency anemia (Primary Dx) Discharge Disposition: Home or Self Care 09/28/2025 8:15 AM EST Lab Draw Station - [address] [facility] [address] [place] [id number] Testicular hypofunction; Special screening for malignant neoplasm of prostate 09/01/2025 8:16 AM EST - 09/01/2025 11:59 PM EST Hospital Encounter [address] [phone] Maldonadoramonia-Iy Blanca zapata MD Other dietary vitamin B12 deficiency anemia (Primary Dx) Discharge Disposition: Home or Self Care 08/03/2025 8:19 AM EDT - 08/03/2025 11:59 PM EDT Hospital Encounter [address] [phone] Sylonia-Iy Blanca zapata MD Other dietary vitamin B12 deficiency anemia (Primary Dx) Discharge Disposition: Home or Self Care 07/21/2025 3:25 PM EDT Ancillary Procedure [facility] - [facility] [address] [facility] [address] [place] [phone] from Last 3 Months Immunizations Immunization Administration Dates Next Due Pfizer SARS-CoV-2 COVID-19, mRNA, LNP-S, preservative free 07/27/2021,01/08/2021,12/18/2020 Surgical History Surgery Date Site/Laterality Comments COLONOSCOPY PROCEDURE:COLONOSCOPY HERNIA REPAIR PROCEDURE:HERNIA REPAIR TOTAL HIP ARTHROPLASTY PROCEDURE:TOTAL HIP ARTHROPLASTY Medical History Medical History Date Comments Diabetes mellitus (CMS/HCC V24, [facility] V28) DX:Diabetes mellitus ([facility]) Hypertension DX:Hypertension Anemia DX:Anemia Acute bronchitis DX:Acute bronch itis Arthritis DX:Arthritis Chronic pain DX:Chronic pain Sacroiliitis ([facility] V24) DX:Sa croiliitis ([facility]) Male hypogonadism DX:Male hypogo nadism Hypercholesterolemia DX:Hypercho lesterolemia Glaucoma DX:Glaucoma Vitamin D deficiency DX:Vitamin D deficiency CHF (congestive heart failur e) ([facility] V24, [facility] V28) Social History Tobacco Use Types Packs/Day Years Used Date Smoking Tobacco: Every Day Cigarettes Smokeless Tobacco: Never Tobacco Cessation:Ready to Q uit: Not Asked; Counseling Given: Not Answered Alcohol Use Standard Drinks/Week Comments Yes 0 [...] Orientation Straight 12/03/2024 8: 32 AM EST Last Filed Vital Signs Vital Sign Reading Time Taken Comments Blood Pressure 120/64 09/29/2025 8:30 AM EST Pulse 86 09/29/2025 8:30 AM EST Temperature 36.4 C (97.5 F) 09/29/2025 8:30 AM EST Respiratory Rate 14 09/29/2025 8:30 AM EST Oxygen Saturation 94% 09/29/2025 8:30 AM EST Inhaled Oxygen Concentration - - Weight 93 kg (205 lb) 07/05/2025 8:28 AM EDT Height 175.3 cm (5' 9 ) 07/05/2025 8:28 AM EDT Body Mass Index 30.27 07/05/2025 8:28 AM EDT Plan of Treatment Upcoming Encounters Date Type Department Care Team (Late st Contact Info) Description 10/27/2025 8:30 AM EST Appointment [address] [place] [address] 11/24/2025 9:00 AM EST Office Visit [facility] Hematology Oncology [address] [place] [address] Shira-Blanca Clarke MD [address] [place] [address] 01/20/2026 8:00 AM EDT Ancillary Procedure [facility] - [facility] [address] [facility] [address] [place] [address] Health Maintenance Due Date Last Done Comments Drug Screen 1950 Non-Opioid Controlled Substance Agreement 1950 Diabetes: Annual Foot Exam 1961 Diabetes: Annual Retina Eye Exam 1960 Abdominal Aortic Aneurysm (AAA) Screen 09/18/2022 Hepatitis C Screening 09/18/2022 Medicare Annual Wellness Visit 09/18/2022 Social Influencers of Health Screening 09/18/2022 Diabetes: Annual Urine Albumin-Creatinine Ratio (uACR) 11/24/2023 Depression Screening 10/21/2024 Diabetes: Blood Sugar Control Test (HGBA1C) 10/27/2025 04/26/2025, 10/22/2024 COVID-19 Vaccine (11 - Pfizer risk 2024- season) 2026 07/21/2025, 06/26/2024, 01/02/2024, Additional history exists DTaP,Tdap,and Td Vaccines (3 - Td or Tdap) 06/15/2026 06/15/2016, 07/24/2006 Diabetes: Annual GFR (Glomerular Filtration Rate) 08/04/2026 08/04/2025, 04/26/2025, 10/22/2024 Hypertension/CHF/CAD Annual BMP Blood Test 08/04/2026 08/04/2025, 04/26/2025, 10/22/2024 Falls Risk Assessment 09/29/2026 09/29/2025 Cholesterol Screening (Lipid Panel) 04/26/2030 04/26/2025, 10/22/2024 Colorectal Cancer Screening: Colonoscopy 12/04/2034 12/04/2024 Hepatitis A Vaccines Aged Out 07/20/2008, 01/05/20 08 No longer eligible based on patient's age to complete this topic Hepatitis B Vaccines Completed 07/20/2008, 02/18/2008, 01/05/2008 Zoster Vaccines Completed 06/18/2023, 03/22, 08/07/2019, Additional history exists RSV Immunization Adult Patients Completed 07/18/2023 Pneumococcal Vaccine: 50+ Years Completed 02/18/2024, 11/15/2017, 05/23/2017, Additional history exists Influenza Vaccine Completed 07/21/2025, , 06/18/2023, Additional history exists HIB Vaccines Aged Out No longer eligi ble based on patient's age to complete this topic HPV Vaccines Aged Out No longer eligi ble based on patient's age to complete this topic IPV Vaccines Aged Out No longer eligi ble based on patient's age to complete this topic MMR Vaccines Aged Out No longer eligi ble based on patient's age to complete this topic Meningococcal ACWY Vaccine Aged Out N o longer eligible based on patient's age to complete this topic Meningococcal B Vaccine Aged Out No l onger eligible based on patient's age to complete this topic RSV Immunization Patients Under 20 months Aged Out No longer eligible based on patient's age to complete this topic Varicella Vaccines Aged Out No longer eligible based on patient's age to complete this topic Medical Devices Implanted Type Area Sausage Mixer Device Identifier Shelf Expiration Date Model / Serial / Lot Abbt-Stju [id number] [employer] [place](Tm) Vr [id number] Implanted:05/2024 (Quantity not on file) Cardiac ICD [facility] [id number] GALLANT(TM) VR / [id number] / Abbt-Stju [place] Vr [id number] Implanted:05/2024 (Quantity not on file) Cardiac ICD [facility] GALLANT VR [id number] / [id number] / Procedures Procedure Name Priority Date/Time Associated Diagnosis Comments BUN Routine 10/01/2025 7:47 AM EST Testicular hypofunction Screening for malignant neoplasm of prostate TESTOSTERONE, TOTAL Routine 10/01/2025 7 :47 AM EST Testicular hypofunction Screening for malignant neoplasm of prostate COMPREHENSIVE METABOLIC PANEL Routine 08/04/2025 7:37 AM EDT Chronic kidney disease (CKD) stage G3a/A1, moderately decreased glomerular filtration rate (GFR) between 45-59 mL/min/1.73 square meter and albuminuria creatinine ratio les* ([facility] V24, [facility] V28) CARDIAC DEVICE CHECK- REMOTE- MURJ Routine 07/21/2025 3:20 PM EDT HEMOGLOBIN A1C Routine 04/26/2025 7:53 AM EDT Hypertension, essential Type II or unspecified type diabetes mellitus with renal manifestations, not stated as uncontrolled(250.40 ) ([facility] V24, [facility] V28) Mixed hyperlipidemia Myelodysplastic syndrome ([facility] V24, [facility] V28) Special screening for malignant neoplasm of prostate Routine general medical examination at a health care facility LIPID PANEL WITH REFLEX TO DIRECT LDL Routine 04/26/2025 7:53 AM EDT Hypertension, essential Type II or unspecified type diabetes mellitus with renal manifestations, not stated as uncontrolled(250.40 ) ([facility] V24, [facility] V28) Mixed hyperlipidemia Myelodysplastic syndrome ([facility] V24, [facility] V28) Special screening for malignant neoplasm of prostate Routine general medical examination at a health care facility COLONOSCOPY Routine 12/04/2024 12:36 PM EST Colon cancer screening from Last 3 Months or Most Recently Relevant to Health Maintenance Results * BUN (10/01/2025 7:47 AM EST) BUN 20 5 - 25 mg/dL 10/01/2025 9:29 AM EST [facility] Blood Venous blood specimen / Unknown Venipuncture / Unknown 10/01/2025 7:47 AM EST 10/01/2025 8:44 AM EST us Wilbert Hernandez MD LAB BLOOD ORDERABLES Final Re sult [facility] [address] [place] [address], [place] [phone] * Testosterone, total (10/01/2025 7:47 AM EST) Pathologist [facility] Testosterone 580 229 - 902 ng/dL 10/01/2025 9:28 AM EST [facility] Blood Venous blood specimen / Unknown Venipuncture / Unknown 10/01/2025 7:47 AM EST 10/01/2025 8:44 AM EST Narrative [facility] - 10/01/2025 9:28 AM EST Over the counter supplements containing high doses of biotin may interfere with this assay. If interference is suspected, patients shoud be retested after refraining from biotin supplements for 72 hours. us Wilbert Hernandez MD LAB BLOOD ORDERABLES Final Re sult [facility] [address] [place] [address], [place] [phone] * (ABNORMAL) Comprehensive metabolic panel (08/04/2025 7:37 AM EDT) Pathologist [facility] Sodium 139 133 - 145 mmol/L LAB CHEMISTRY METHOD 08/04/2025 9:02 AM [facility] Potassium 3.9 3.5 - 5.5 mmol/L LAB CHEMISTRY METHOD 08/04/2025 9:02 AM [facility] Chloride 106 96 - 110 mmol/L LAB CHEMISTRY METHOD 08/04/2025 9:02 AM [facility] CO2 28 21 - 32 mmol/L LAB CHEMISTRY METHOD 08/04/2025 9:02 AM [facility] Anion Gap 5 3 - 11 LAB CHEMISTRY METHOD 08/04/2025 9:02 AM [facility] Glucose 130(H) 70 - 100 mg/dL LAB CHEMISTRY METHOD 08/04/2025 9:02 AM [facility] BUN 23 5 - 25 mg/dL LAB CHEMISTRY METHOD 08/04/2025 9:02 AM [facility] Creatinine 1.37(H) 0.70 - 1.30 mg/dL LAB CHEMISTRY METHOD 08/04/2025 9:02 AM [facility] eGFR 54(L) >=60 mL/min/1. 73m2 LAB CHEMISTRY METHOD 08/04/2025 9:02 AM [facility] Comment:Calculation based on the Chronic Kidney Disease Epidemiology Collaboration (CKD-EPI) equation refit without adjustment for race. BUN/Creatinine Ratio 16.8 LAB CHEMISTRY METHOD 08/04/2025 9:02 AM [facility] Calcium 9.7 8.5 - 10.5 mg/dL LAB CHEMISTRY METHOD 08/04/2025 9:02 AM [facility] AST (SGOT) 20 10 - 42 unit/L LAB CHEMISTRY METHOD 08/04/2025 9:02 AM [facility] ALT (SGPT) 19 10 - 60 unit/L LAB CHEMISTRY METHOD 08/04/2025 9:02 AM [facility] Alkaline Phosphatase 48 42 - 121 unit/L LAB CHEMISTRY METHOD 08/04/2025 9:02 AM [facility] Total Protein 7.0 6.0 - 8.0 g/dL LAB CHEMISTRY METHOD 08/04/2025 9:02 AM [facility] Albumin 4.0 3.2 - 5.0 g/dL LAB CHEMISTRY METHOD 08/04/2025 9:02 AM [facility] Total Bilirubin 0.3 0.0 - 1.4 mg/dL LAB CHEMISTRY METHOD 08/04/2025 9:02 AM [facility] Blood Venous blood specimen / Unknown Venipuncture / Unknown 08/04/2025 7:37 AM EDT 08/04/2025 8:20 AM EDT us Evelia Svrcek PA LAB BLOOD ORDERABLES Final Resul t [facility] [address] [place] [address], * Cardiac device check - Remote- MURJ (07/21/2025 3:20 PM EDT) Date Time Interrogation Session [id number] CV DEVICE CHECK Type Interrogation Session Remote Scheduled CV DEVICE CHECK Implantable Pulse Generator Sausage Mixer [employer] CV DEVICE CHECK Implantable Pulse Generator Type ICD CV DEVICE CHECK Implantable Pulse Generator Model [id number] [place](TM) VR CV DEVICE CHECK Implantable Pulse Generator Serial Number [id number] CV DEVICE CHECK Implantable Pulse Generator Implant Date 20231227 CV DEVICE CHECK Battery Remaining Percentage 85.00 CV DEVICE CHECK Battery Remaining Longevity 106.0 CV DEVICE CHECK Battery Voltage 3.020 CV D EVICE CHECK Battery OUTDOOR ADVENTURE GUIDES Trigger 2.620 CV DEVICE CHECK Battery Status Middle of Service CV DEVICE CHECK Capacitor Charge Time 9.000 CV DEVICE CHECK Lazarus Statistic RV Percent Paced 0.00 CV DEVICE CHECK Lead Channel Sensing Intrinsic Amplitude 6.400 CV DEVICE CHECK Lead Channel Setting Sensing Sensitivity 0.50 CV DEVICE CHECK Lead Channel Impedance Value 380 CV DEVICE CHECK Lead Channel Setting Pacing Amplitude 0.875 CV DEVICE CHECK Lead Channel Setting Pacing Pulse Width 0.5 CV DEVICE CHECK Lazarus Setting Mode (NBG Code) VVI CV DEVICE CHECK Lazarus Setting Lower Rate Limit 40 CV DEVICE CHECK Lazarus Setting Maximum Sensor Rate 110 CV DEVICE CHECK Therapy Statistic Recent Shocks Delivered 0 CV DEVICE CHECK Therapy Statistic Recent Shocks Aborted 0 CV DEVICE CHECK Therapy Statistic Recent ATP Delivered 0 CV DEVICE CHECK Shock Measured Impedance 65 CV DEVICE CHECK Zone Setting Type Category VT CV DEVICE CHECK Rate 150 CV DEVICE CHECK Zone Setting Status On CV DEVICE CHECK Zone ID 1 CV DEVICE CHECK Zone Setting Type Category VT CV DEVICE CHECK Zone Setting Status Inactive CV DEVICE CHECK Zone ID 2 CV DEVICE CHECK Zone Setting Type Category VF CV DEVICE CHECK Rate 200 CV DEVICE CHECK Therapies 32.8J,36.4J,36.4J x 4 CV DEVICE CHECK Zone Setting Status On CV DEVICE CHECK Zone ID 3 CV DEVICE CHECK Date of Service 2025-07-30 CV DEVICE CHECK Anatomical Region Laterality Modality Device Interroga tion 07/20/2025 2:01 AM EDT Impressions 07/20/2025 12:25 PM EDT Normal Remote: No Events * Normal Device Function * Alerts or events: None * Battery: Battery is at 85%, 8.83 yrs * Sensing, impedance and thresholds reviewed * Programmed parameters reviewed * Presenting rhythm reviewed * Heart Rate Histograms reviewed * No significant changes noted Heart Failure Diagnostic: Stable * Heart failure diagnostics assessed through the device * Status: Stable * No overt HF present Narrative Procedure Note Enrique Zacarias MD - 07/21/2025 IMPRESSION: Normal Remote: No Events * Normal Device Function * Alerts or events: None * Battery: Battery is at 85%, 8.83 yrs * Sensing, impedance and thresholds reviewed * Programmed parameters reviewed * Presenting rhythm reviewed * Heart Rate Histograms reviewed * No significant changes noted Heart Failure Diagnostic: Stable * Heart failure diagnostics assessed through the device * Status: Stable * No overt HF present Enrique Zacarias MD CV IMPLANTABLE CARDIAC DEVICE PROCEDURES Final Result * (ABNORMAL) Lipid panel with reflex to direct LDL (04/26/2025 7:53 AM EDT) Cholesterol 161 0 - 200 mg/dL LAB CHEMISTRY METHOD 04/26/2025 10:16 AM [facility] Triglycerides 271(H) 0 - 150 mg/dL LAB CHEMISTRY METHOD 04/26/2025 10:16 AM [facility] HDL 40 >=40 mg/dL LAB CHEMISTRY METHOD 04/26/2025 10:16 AM [facility] LDL Calculated 67 0 - 100 mg/dL LAB CHEMISTRY METHOD 04/26/2025 10:16 AM [facility] VLDL Cholesterol Dc 54.2 mg/dL LAB CHEMISTRY METHOD 04/26/2025 10:16 AM [facility] Non HDL Chol. (LDL+VLDL) 121 <145 mg/dL LAB CHEMISTRY METHOD 04/26/2025 10:16 AM [facility] Chol/HDL Ratio 4.0 0.0 - 4.4 LAB CHEMISTRY METHOD 04/26/2025 10:16 AM EDT [facility] Blood Venous blood specimen / Unknown Venipuncture / Unknown 04/26/2025 7:53 AM EDT 04/26/2025 9:22 AM EDT Evelia HEAD LAB BLOOD ORDERABLES Final Resul t Performing Organization Address [facility] de Phone Number [facility] [address] [place] [address], [place] [phone] * Hemoglobin A1c (04/26/2025 7:53 AM EDT) Hemoglobin A1C 6.4 <6.5 % LAB CHEMISTRY METHOD 04/26/2025 12:49 PM EDT [facility] Mean Bld Glu Estim. 137 mg/dL LAB CHEMISTRY METHOD 04/26/2025 12:49 PM EDT [facility] Blood Venous blood specimen / Unknown Venipuncture / Unknown 04/26/2025 7:53 AM EDT 04/26/2025 9:24 AM EDT Evelia HEAD LAB BLOOD ORDERABLES Final Resul t Performing Organization Address [facility] de Phone Number [facility] [address] [place] [address], [place] [phone] * COLONOSCOPY Anesthesia - MAC; [facility] ENDOSCOPY (12/04/2024 12:36 PM EST) Anatomical Region Laterality Modality Other 12/04/2024 12:1 4 PM EST Impressions 12/04/2024 12:37 PM EST - Three 2 to 3 mm polyps in the descending colon, in the transverse colon and in the cecum, removed with a jumbo cold forceps. Resected and retrieved. - The examination was otherwise normal on direct and retroflexion views. Recommendation: - Patient has a contact number available for emergencies. The signs and symptoms of potential delayed complications were discussed with the patient. Return to normal activities tomorrow. Written discharge instructions were provided to the patient. - Resume previous diet. - Continue present medications. - Await pathology results. - Repeat colonoscopy in 3 - 5 years for surveillance. Narrative 12/04/2024 12:37 PM EST [facility] Patient Name: Mike Brian Procedure Date: 12/04/2024 12:14 PM Date of : 1950 Age: 74 Room: ROOM 14 Gender: Male Note Status: Finalized Attending MD: Saud Campbell MD, Procedure Date No Time: 12/04/2024 Procedure: Colonoscopy Indications: Screening for colorectal malignant neoplasm Providers: Saud Campbell MD Referring MD: Saud Campbell MD Medicines: Monitored Anesthesia Care Complications: No immediate complications. Estimated Blood Loss: Estimated blood loss: none. Procedure: After I obtained informed consent, the scope was passed under direct vision. Throughout the procedure, the patient's blood pressure, pulse, and oxygen saturations were monitored continuously.The Colonoscope was introduced through the anus and advanced to the cecum, identified by appendiceal orifice and ileocecal valve. The colonoscopy was performed without difficulty. The patient tolerated the procedure well. The quality of the bowel preparation was adequate. Findings: Three sessile polyps were found in the descending colon, transverse colon and cecum. The polyps were 2 to 3 mm in size. These polyps were removed with a jumbo cold forceps. Resection and retrieval were complete. The exam was otherwise without abnormality on direct and retroflexion views. Procedure Code(s): --- Professional --- 27151, Colonoscopy, flexible; with biopsy, single or multiple Diagnosis Code(s): --- Professional --- Z12.11, Encounter for screening for malignant neoplasm of colon D12.4, Benign neoplasm of descending colon D12.3, Benign neoplasm of transverse colon (hepatic flexure or splenic flexure) D12.0, Benign neoplasm of cecum CPT copyright 2020 [employer]. All rights reserved. The codes documented in this report are preliminary and upon oriental rug repairer review may be revised to meet current compliance requirements. MD Saud Garza MD 12/04/2024 12:36:59 PM This report has been signed electronically.Saud Campbell MD Number of Addenda: 0 Note Initiated On: 12/04/2024 12:14 PM Scope In: Scope Out: Endoscopy Department at [facility] - [address] [place] [phone] Procedure Note Saud Campbell MD - 12/04/2024 [facility] GI Patient Name: Mike Brian Procedure Date: 12/04/2024 12:14 PM Date of : 1950 Age: 74 Room: ROOM 14 Gender: Male Note Status: Finalized Attending MD: Saud Campbell MD, Procedure Date No Time: 12/04/2024 Procedure: Colonoscopy Indications: Screening for colorectal malignant neoplasm Providers: Saud Campbell MD Referring MD: Saud Campbell MD Medicines: Monitored Anesthesia Care Complications: No immediate complications. Estimated Blood Loss: Estimated blood loss: none. Procedure: After I obtained informed consent, the scope was passed under direct vision. Throughout theprocedure, the patient's blood pressure, pulse, and oxygen saturations were monitored continuously.The Colonoscope was introduced through the anus and advanced to the cecum, identified by appendiceal orifice and ileocecal valve. The colonoscopy was performed without difficulty. The patient tolerated the procedure well. The quality of the bowel preparation was adequate. Findings: Three sessile polyps were found in the descending colon, transverse colon and cecum. The polyps were2 to 3 mm in size. These polyps were removed with a jumbo cold forceps. Resection and retrieval were complete. The exam was otherwise without abnormality ondirect and retroflexion views. Procedure Code(s): --- Professional --- 09636, Colonoscopy, flexible; with biopsy, singleor multiple Diagnosis Code(s): --- Professional --- Z12.11, Encounter for screening for malignantneoplasm of colon D12.4, Benign neoplasm of descending colon D12.3, Benign neoplasm of transverse colon (hepatic flexure or splenic flexure) D12.0, Benign neoplasm of cecum CPT copyright 2020 [employer]. All rights reserved. The codes documented in this report are preliminary and upon oriental rug repairer reviewmay be revised to meet current compliance requirements. MD Saud Garza MD 12/04/2024 12:36:59 PM This report has been signed electronically.Saud Campbell MD Number of Addenda: 0 Note Initiated On: 12/04/2024 12:14 PM Scope In: Scope Out: Endoscopy Department at [facility] - [address] [place] [phone] IMPRESSION: - Three 2 to 3 mm polyps in the descending colon, in the transverse colon and in the cecum, removed witha jumbo cold forceps. Resected and retrieved. - The examination was otherwise normal on directand retroflexion views. Recommendation: - Patient has a contact number available for emergencies. The signs and symptoms of potential delayed complications were discussed with thepatient. Return to normal activities tomorrow. Written discharge instructions were provided to thepatient. - Resume previous diet. - Continue present medications. - Await pathology results. - Repeat colonoscopy in 3 - 5 years forsurveillance. Saud Campbell MD GI~PROCEDURE ORDERABLES Final R esult from Last 3 Months or Most Recently Relevant to Health Maintenance Insurance [facility] [address] [place] [address] [facility] [employer] Member Subscriber Plan / Payer (Ef fective 2021-Present) Name:Mike Brian Relation to Subscriber:Self Name:Mike Brian Payer ID:[id number] Group ID:[id number] Type:Not on file Address: [address] [place] [address] Care Teams Desk Lieutenant Relationship Specialty Start Date End Date Jules Sullivan MD [address] [place] [id number] PCP - General Internal Medicine 06/20/17
--- OUTSIDE RECORDS SUMMARY | 2025-10-12 09:53 | XMS_ITS | Encounter Summary ---
Author Organization [facility] Address [address] [place] [address] Care Team Providers Care Advertising Operations Manager Name Role Phone Jules Sullivan MD Primary Care Provider [phone] Encounter Details Date Type Department Care Team (Late st Contact Info) Description 10/01/2025 Telephone Internal Medicine - [place] [address] [facility] [address] [place] [phone] Vick Madison MD [address] [facility] [address] [place] [address] Social History Tobacco Use Types Packs/Day Years [...] AM EST documented as of this encounter Plan of Treatment Upcoming Encounters Date Type Department Care Team (Late st Contact Info) Description 10/27/2025 8:30 AM EST Appointment Infusion Center [address] [facility] 2nd [place] [phone] 11/24/2025 9:00 AM EST Office Visit Hematology Oncology [address] [place] [phone] Shira-Blanca Clarke MD [address] [place] [phone] 01/20/2026 8:00 AM EDT Ancillary Procedure [facility] - [facility] [address] [facility] [address] [place] [phone] documented as of this encounter Visit Diagnoses Not on filedocumented in this encounter Care Teams Advertising Operations Manager Relationship Specialty Start Date End Date Jules Sullivan MD [address] [place] [id number] PCP - General Internal Medicine 06/20/17 documented as of this encounter
--- OUTSIDE RECORDS SUMMARY | 2025-10-12 09:53 | XMS_ITS | Patient Health Record ---
Author Organization [facility] [address] Address [address] [place] [address] Care Team Providers Care Genetic Counselor Name Role Phone Rossy Durand Primary Care Provider REBECCA SULLIVAN Unavailable [phone] MARIANA HERRERA Unavailable [phone] Allergies Allergen (clinical drug ingredient) Drug/Non Drug Allergy documented on EMR Reaction Allergy Type Onset Date Status lisinopril Lisinopril Unknown Drug Allergy Activ e Results Component Value Reference Range Flag Notes XR FOOT 3+ VIEWS RIGHT Reviewed date:11/12/2024 04:39:18 PM Interpretation: Performing Lab: Notes/Report: Note See Note [facility], a member of [place] [employer] Patient Name: MILDRED MANSFIELD Date of : 1950 Reason for Exam: pain Exam Date: 10/29/2024 [id number] EST Report Status: Final Ordering Provider: REBECCA SULLIVAN PCP: REBECCA SULLIVAN HISTORY: The patient is a 74-year-old male with right foot pain, especially in the first toe. No history of trauma is provided. FINDINGS: AP, lateral, and oblique views of the right foot are obtained. The study demonstrates no fracture, dislocation, or arthritic change. Partially included on this study is a 5.6 x 2.0 cm mixed lucent and sclerotic mass in the distal tibia. There is no periosteal reaction. No soft tissue abnormality is seen. IMPRESSION: No fracture or dislocation. Partially included is a mixed lucent and sclerotic lesion in the distal tibia measuring 5.6 x 2.0 cm, without periosteal reaction. This is felt likely to be benign, possibly healed fibrous cortical defect or a focus of fibrous dysplasia. More complete evaluation with dedicated right ankle radiographs is recommended. -------- FINAL REPOR T -------- Dictated By: Carmelo Fong Dictated Date: 10/29/2024 09:19 ET Assigned Physician: Carmelo Fong Reviewed and Electronically Signed By: Carmelo Fong Signed Date: 10/29/2024 09:28 ET Workstation ID: [id number] Transcribed By: Self Edit Transcribed Date: 10/29/2024 09:19 ET COMPREHENSIVE METABOLIC PANE L Reviewed date:08/04/2025 01:41:59 PM Interpretation: Performing Lab: Notes/Report: Sodium 139 133-145 mmol/L Potassium 3.9 3.5-5.5 mmol/L Chloride 106 96-110 mmol/L CO2 28 21-32 mmol/L Anion Gap 5 3-11 Glucose 130 70-100 mg/dL H BUN 23 5-25 mg/dL Creatinine 1.37 0.70-1.30 mg/dL H eGFR 54 >=60 mL/min/1.73m2 L Calculation based on the Chronic Kidney Disease Epidemiology Collaboration (CKD-EPI) equation refit without adjustment for race. BUN/Creatinine Ratio 16.8 Calcium 9.7 8.5-10.5 mg/dL AST (SGOT) 20 10-42 unit/L ALT (SGPT) 19 10-60 unit/L Alkaline Phosphatase 48 42-121 unit/L Total Protein 7.0 6.0-8.0 g/dL Albumin 4.0 3.2-5.0 g/dL Total Bilirubin 0.3 0.0-1.4 mg/dL XR ANKLE 3+ VIEWS RIGHT Reviewed date:11/12/2024 04:38:28 PM Interpretation: Performing Lab: Notes/Report: Note See Note [facility], a member of [employer] Patient Name: MILDRED MANSFIELD Date of : 1950 Reason for Exam: PAIN Exam Date: 11/09/2024 [id number] EST Report Status: Final Ordering Provider: ROSSY DURAND PCP: REBECCA SULLIVAN EXAMINATION: RIGHT ANKLE CLINICAL INFORMATION: Abnormal foot x-ray. Lesion in distal tibia. Pain COMPARISON: None. TECHNIQUE: 4 views right ankle FINDINGS: There is an intraosseous partially mineralized lesion in the distal tibial diametaphysis. This appears to be primarily intramedullary. There is no endosteal thinning or periosteal new bone. There is an osteoid or chondroid component with some intermixed lucencies. There is no evidence of pathologic fracture or bone expansion. IMPRESSION: There is an intramedullary partially mineralized lesion of the distal tibia without periosteal new bone, cortical thinning or pathologic fracture. A single image of th e left ankle from 06/24/2020 demonstrates a similar lesion in the distal left tibia. Possibilities includ e a bone infarct, enchondroma or other similar nonaggressive lesions. Difficult to quantif y the risk of pathologic fracture. -------- FINAL REPOR T -------- Dictated By: John Santoro Dictated Date: 11/10/2024 06:58 ET Assigned Physician: John Santoro Reviewed and Electronically Signed By: John Santoro Signed Date: 11/10/2024 07:03 ET Workstation ID: [id number] Transcribed By: Self Edit Transcribed Date: 11/10/2024 06:58 ET URINALYSIS WITH REFLEX MICRO SCOPIC AND CULTURE Reviewed date:04/26/2025 05:10:31 PM Interpretation: Performing Lab: Notes/Report: Specific [place] Urine 1.027 1.003-1.030 pH, Urine 5.0 5.0-8.0 pH Leukocytes, Urine Negative Negative Nitrite, Urine Negative Negative Protein, Urine 100 <=Trace mg/dL A Glucose, Urine >=1000 Negative mg/dL A Ketones, Urine Trace Negative mg/dL A Urobilinogen, Urine 1.0 0.2-1.0 mg/dL Bilirubin, Urine Negative Negative Blood, Urine Negative Negative RBC, Urine 2.4 0-4 /HPF WBC, Urine 1.1 0-4 /HPF Squamous Epithelial, Urine 21 0-60 /LPF Bacteria, Urine Negative Negative /HPF Hyaline Casts, Urine 4.0 0-3 /LPF H COMPLETE BLOOD COUNT Reviewed date:04/06/2025 08:55:42 AM Interpretation: Performing Lab: Notes/Report: WBC 5.0 4.8-10.8 K/mcL RBC 3.90 4.50-5.50 M/mcL L Hemoglobin 12.1 13.5-17.5 g/dL L Hematocrit 38.9 42.0-54.0 % L MCV 100.5 79.0-98.0 FL H MCH 31.3 27.0-32.0 pcg MCHC 31.1 32.0-37.0 g/dL L RDW 13.1 11.0-15.0 % Platelets 242 130-400 K/mcL MPV 9.6 7.0-11.0 FL NRBC 0.0 <1.0 % NRBC Absolute 0.00 <0.10 K/mcL COMPREHENSIVE METABOLIC PANE L Reviewed date:04/26/2025 05:12:40 PM Interpretation: Performing Lab: Notes/Report: Sodium 132 133-145 mmol/L L Potassium 4.6 3.5-5.5 mmol/L Chloride 100 96-110 mmol/L CO2 28 21-32 mmol/L Anion Gap 4 3-11 Glucose 140 70-100 mg/dL H BUN 27 5-25 mg/dL H Creatinine 1.51 0.70-1.30 mg/dL H eGFR 48 >=60 mL/min/1.73m2 L Calculation based on the Chronic Kidney Disease Epidemiology Collaboration (CKD-EPI) equation refit without adjustment for race. BUN/Creatinine Ratio 17.9 Calcium 10.4 8.5-10.5 mg/dL AST (SGOT) 11 10-42 unit/L ALT (SGPT) 16 10-60 unit/L Alkaline Phosphatase 60 42-121 unit/L Total Protein 7.8 6.0-8.0 g/dL Albumin 4.5 3.2-5.0 g/dL Total Bilirubin 0.5 0.0-1.4 mg/dL COMPREHENSIVE METABOLIC PANE L Reviewed date:10/26/2024 09:55:25 PM Interpretation: Performing Lab: Notes/Report: Sodium 138 133-145 mmol/L Potassium 4.1 3.5-5.5 mmol/L Chloride 106 96-110 mmol/L CO2 25 21-32 mmol/L Anion Gap 7 3-11 Glucose 184 70-100 mg/dL H BUN 25 5-25 mg/dL Creatinine 1.35 0.70-1.30 mg/dL H eGFR 55 >=60 mL/min/1.73m2 L Calculation based on the?Chronic Kidney Disease Epidemiology Collaboration (CKD-EPI) equation refit?without adjustment for race. BUN/Creatinine Ratio 18.5 Calcium 9.6 8.5-10.5 mg/dL AST (SGOT) 14 10-42 unit/L ALT (SGPT) 22 10-60 unit/L Alkaline Phosphatase 70 42-121 unit/L Total Protein 7.4 6.0-8.0 g/dL Albumin 4.3 3.2-5.0 g/dL Total Bilirubin 0.4 0.0-1.4 mg/dL LIPID PANEL WITH REFLEX TO D IRECT LDL Reviewed date:10/26/2024 09:54:24 PM Interpretation: Performing Lab: Notes/Report: Cholesterol 140 0-200 mg/dL Triglycerides 207 0-150 mg/dL H HDL 33 >=40 mg/dL L LDL Calculated 66 0-100 mg/dL VLDL Cholesterol Dc 41.4 Non HDL Chol. (LDL+VLDL) 107 <145 mg/dL Chol/HDL Ratio 4.2 0.0-4.4 LIPID PANEL WITH REFLEX TO D IRECT LDL Reviewed date:04/26/2025 05:12:48 PM Interpretation: Performing Lab: Notes/Report: Cholesterol 161 0-200 mg/dL Triglycerides 271 0-150 mg/dL H HDL 40 >=40 mg/dL LDL Calculated 67 0-100 mg/dL VLDL Cholesterol Dc 54.2 Non HDL Chol. (LDL+VLDL) 121 <145 mg/dL Chol/HDL Ratio 4.0 0.0-4.4 CBC WITH AUTO DIFFERENTIAL Reviewed date:04/26/2025 05:13:59 PM Interpretation: Performing Lab: Notes/Report: WBC 5.1 4.8-10.8 K/mcL RBC 3.90 4.50-5.50 M/mcL L Hemoglobin 12.2 13.5-17.5 g/dL L Hematocrit 38.1 42.0-54.0 % L MCV 97.7 79.0-98.0 FL MCH 31.3 27.0-32.0 pcg MCHC 32.0 32.0-37.0 g/dL RDW 12.3 11.0-15.0 % Platelets 285 130-400 K/mcL MPV 9.4 7.0-11.0 FL NRBC 0.0 <1.0 % NRBC Absolute 0.00 <0.10 K/mcL Neutrophils Relative 54.3 Lymphocytes Relative 31.0 Monocytes Relative 8.8 Eosinophils Relative 4.5 Basophils Relative 1.0 Immature Granulocytes Relative 0.4 Neutrophils Absolute 2.77 1.50-7.00 K/mcL Lymphocytes Absolute 1.58 1.00-5.00 K/mcL Monocytes Absolute 0.45 0.20-1.00 K/mcL Eosinophils Absolute 0.23 0.00-0.50 K/mcL Basophils Absolute 0.05 0.00-0.20 K/mcL Immature Granulocytes Absolute 0.02 0.00-0.03 K/mcL CBC WITH AUTO DIFFERENTIAL Reviewed date:10/26/2024 09:58:45 PM Interpretation: Performing Lab: Notes/Report: WBC 5.4 4.8-10.8 K/mcL RBC 3.80 4.50-5.50 M/mcL L Hemoglobin 11.5 13.5-17.5 g/dL L Hematocrit 35.6 42.0-54.0 % L MCV 94.2 79.0-98.0 FL MCH 30.4 27.0-32.0 pcg MCHC 32.3 32.0-37.0 g/dL RDW 12.0 11.0-15.0 % Platelets 307 130-400 K/mcL MPV 9.7 7.0-11.0 FL NRBC 0.4 <1.0 % NRBC Absolute 0.02 <0.10 K/mcL Neutrophils Relative 52.9 Lymphocytes Relative 31.2 Monocytes Relative 8.2 Eosinophils Relative 6.1 Basophils Relative 0.7 Immature Granulocytes Relative 0.9 Neutrophils Absolute 2.85 1.50-7.00 K/mcL Lymphocytes Absolute 1.68 1.00-5.00 K/mcL Monocytes Absolute 0.44 0.20-1.00 K/mcL Eosinophils Absolute 0.33 0.00-0.50 K/mcL Basophils Absolute 0.04 0.00-0.20 K/mcL Immature Granulocytes Absolute 0.05 0.00-0.03 K/mcL H HEMOGLOBIN A1C Reviewed date:04/26/2025 05:09:47 PM Interpretation: Performing Lab: Notes/Report: Hemoglobin A1C 6.4 <6.5 % Mean Bld Glu Estim. 137 HEMOGLOBIN A1C Reviewed date:10/26/2024 09:52:24 PM Interpretation: Performing Lab: Notes/Report: Hemoglobin A1C 7.4 <6.5 % H Mean Bld Glu Estim. 166 PROSTATE SPECIFIC ANTIGEN SC REEN Reviewed date:04/26/2025 05:09:47 PM Interpretation: Performing Lab: Notes/Report: The Siemens Advia SIVIaur Chemiluminescent Immunoassay is used. Results obtained with different assay methods or kits cannot be used interchangeably. Results cannot be interpreted as absolute evidence of the presence or absence of malignant disease. PSA 2.73 0.00-4.00 ng/mL TISSUE EXAM Reviewed date:12/08/2024 11:25:23 AM Interpretation: Performing Lab: Notes/Report: Final Diagnosis A. Cecum, polyp x1: Tubular adenoma. B. Transverse Colon, polyp x1: Tubular adenoma. C. Descending Colon, polyp x1: Tubular adenoma. Gross Description A. Large Intestine, Cecum, polyp x1: Cecum colon polyp x 1 . Received in formalin is a 0.3 cm irregular garcia mucosal tissue fragments which is wrapped in paper and submitted in toto in one cassette, one piece, multiple levels on one slide. B. Large Intestine, Transverse Colon, polyp x1: Labeled trans colon polyp x 1 . Received in formalin are two irregular garcia mucosal tissue fragments, measuring 0.2 cm and 0.3 cm in greatest dimension, which are wrapped in paper and submitted in toto in one cassette, two pieces, multiple levels on one slide. C. Large Intestine, Left/Descending Colon, polyp x1: Labeled descending colon polyp x 1 . Received in formalin is a 0.3 cm irregular garcia mucosal tissue fragment which is wrapped in paper and submitted total in one cassette, one piece, multiple levels on one slide. JAYA Disclaimer Unless otherwise specified, all tissue is 10% NB formalin fixed and paraffin embedded. IRON AND TIBC Reviewed date:11/27/2024 08:45:25 AM Interpretation: Performing Lab: Notes/Report: Iron 30 50-160 mcg/dL L TIBC 329 250-450 mcg/dL Iron Saturation 9 20-50 % L FERRITIN Reviewed date:11/27/2024 08:44:46 AM Interpretation: Performing Lab: Notes/Report: Ferritin 112 26-388 ng/mL PROSTATE SPECIFIC ANTIGEN DI AGNOSTIC Reviewed date:04/05/2025 10:19:35 AM Interpretation: Performing Lab: Notes/Report: The Siemens Advia Centaur Chemiluminescent Immunoassay is used. Results obtained with different assay methods or kits cannot be used interchangeably. Results cannot be interpreted as absolute evidence of the presence or absence of malignant disease. PSA 2.20 0.00-4.00 ng/mL PROTEIN, TOTAL Reviewed date:11/27/2024 08:45:37 AM Interpretation: Performing Lab: Notes/Report: Total Protein 7.8 6.0-8.0 g/dL TESTOSTERONE, TOTAL Reviewed date:10/26/2024 09:53:17 PM Interpretation: Performing Lab: Notes/Report: Testosterone 604 229-902 ng/dL TESTOSTERONE, TOTAL Reviewed date:04/05/2025 10:19:35 AM Interpretation: Performing Lab: Notes/Report: Testosterone 357 229-902 ng/dL TESTOSTERONE, TOTAL Reviewed date:10/04/2025 09:26:49 AM Interpretation: Performing Lab: Notes/Report: Over the counter supplements containing high doses of biotin may interfere with this assay. If interference is suspected, patients shoud be retested after refraining from biotin supplements for 72 hours. Testosterone 580 229-902 ng/dL BUN Reviewed date:10/04/2025 09:26:49 AM Interpretation: Performing Lab: Notes/Report: BUN 20 5-25 mg/dL VITAMIN B12 AND FOLATE Reviewed date:11/27/2024 08:45:37 AM Interpretation: Performing Lab: Notes/Report: Vitamin B-12 1743 250-900 pcg/mL H Folate 10.8 2.8-17.0 ng/ml PATHOLOGIST REVIEW PROTEIN E LECTROPHORESIS Reviewed date:11/27/2024 08:25:13 AM Interpretation: Performing Lab: Notes/Report: Pathologist Interpretation Keli Jernigan MD PROTEIN ELECTROPHORESIS, SER UM Reviewed date:11/27/2024 08:45:37 AM Interpretation: Performing Lab: Notes/Report: Total Protein 7.8 6.0-8.0 g/dL Albumin, Serum 4.2 2.9-4.1 g/dL H Alpha 1 Globulin (g/dL) 0.2 0.1-0.5 g/dL Alpha 2 Globulin (g/dL) 1.1 0.7-1.5 g/dL Beta (g/dL) 1.2 0.7-1.5 g/dL Gamma Globulin (g/dL) 1.1 0.7-1.9 g/dL SPEP Interpretation No M-Gelacio seen. Increased levels of albumin may be seen in acute dehydration. PPC Hemoglobin A1C Reviewed date:08/17/2025 09:43:26 AM Interpretation:5.6 Performing Lab: Notes/Report: 5.6 HGA1C 5.6 XR ANKLE 3+ VIEWS RIGHT Reviewed date:09/09/2025 09:56:11 AM Interpretation: Performing Lab: Notes/Report: See Note [facility], a member of [facility] Right ankle 3 views weightbearing: Concern for bone lesion of the tibia which is unchanged since x-ray from 1 year ago. Minimal concern for malignancy Reason For Referral Reason Colonoscopy screenin g with [facility] Diagnosis 1 Colon cancer screeni (Z12.11) Diagnosis 2 Congestive heart evita lure, unspecified HF chronicity, unspecified heart failure type (I50.9) Diagnosis 3 Cardiomyopathy, unsp ecified type (I42.9) Referral Organization [facility] [address] Referring Provider First Name REBECCA Referring Provider Last Name JENNIFER Referring Provider Speciality Internal edicine Referred Provider Specialty Gastroentero logy General Notes [facility], [address] [place] [address], P [phone], F [phone] Clinical Notes Makayla Hernandez 2024 03:48:49 PM >Please note that patient will need to be cleared by cardiology for procedure., Makayla Hernandez 11/05/2024 03:49:25 PM >Referral faxed to [facility] with notes and labs., Makayla Hernandez 11/13/2024 09:07:50 AM >Scheduled with Dr. Campbell 12/04/24 at 12pm. Referral Priority Routine Diagnosis 1 Bone lesion (M89.9) Referral Organization [facility] [address] Referring Provider First Name Rossy Referring Provider Last Name Tricia Referring Provider Speciality Internal edicine Referred Provider Specialty Orthopedic S urgery General Notes Kelsi Ralph 11/23 10:49:46 AM >faxed to leonel goldsmith @ fax # [phone], their phone number is [phone] Clinical Notes Birdie Adame 01:31:34 PM > The patient was seen on 01/05/25 Referral Priority Routine Reason NEOS; left hip pain Diagnosis 1 Hip pain, left (M25. 552) Referral Organization [facility] [address] Referring Provider First Name Rossy Referring Provider Last Name Svrcek Referring Provider Speciality Internal M edicine Referred Provider Specialty Orthopedic S urgery General Notes [address] (p) [phone], (f) [phone], form faxed to [phone] Clinical Notes Mary Le 08:04:47 AM > faxed with notes Referral Priority Routine Medications Medication SIG (Take, Route, Frequency, Duration) Notes Start Date End Date Status amLODIPine Besylate 10 MG Tablet TAKE 1 TABLET BY MOUTH EVERY DAY; Duration: 90 Active Brimonidine Tartrate 0.2 % Solution 1 drop into affected eye Ophthalmic every 8 hrs Active FreeStyle Lite Test - Strip TEST TWICE D AILY; Duration: 75 Active Vitamin B12 100 MCG Tablet as directed Orally Active Losartan Potassium 50 MG Tablet TAKE 1 TABLET BY MOUTH EVERY DAY; Duration: 90 Active Timolol Maleate Acti ve Vitamin D3 50 MCG (2000 UT) Tablet TAKE 1 TABLET BY MOUTH DAILY; Duration: 90 Active Furosemide 20 MG Tablet 1 tablet Orally every other day Active metFORMIN HCl 1000 MG Tablet TAKE 1 TABL ET BY MOUTH TWICE DAILY; Duration: 90 Active Rosuvastatin Calcium 20 MG Tablet TAKE 1 TABLET BY MOUTH EVERY DAY; Duration: 90 days Active Aspirin Low Dose 81 MG Tablet Delayed Release TAKE 1 TABLET BY MOUTH EVERY DAY; Duration: 90 Active Testosterone 50 MG Pellet as directed Im plant Once a day 50 mg Active FreeStyle Lancets - Miscellaneous USE DIRECTED TO CHECK BLOOD SUAGR EVERY DAY; Duration: 90 Active Metoprolol Succinate ER 50 MG Tablet Extended Release 24 Hour 1 tablet Orally Once a day; Duration: 90 days Active FeroSul 325 (65 Fe) MG Tablet Oral; Duration: 90 Active Spironolactone 25 MG Tablet 1 tablet Ora lly Once a day; Duration: 90 days Active Farxiga 10 MG Tablet TAKE 1 TABLET BY ND UT EVERY DAY; Duration: 90 Active Immunizations Vaccine Route Administration Date Status Comme nts Influenza, high dose seasonal IM Intramuscular 07/21/2019 Administered Pfizer Covid-19 Vaccine Unknown 12/18/2020 Administered Pfizer Covid-19 Vaccine Unknown 01/08/2021 Administered Pfizer Covid-19 Vaccine Unknown 07/27/2021 Administered Pneumococcal conjugate PCV 7 Unknown 07/20/2015 Administered Pneumococcal polysaccharide PPV23 IM Intramuscular 11/15/2017 Pending SHINGRIX IM Intramuscular 11/19/2018 Administered SHINGRIX IM Intramuscular 08/07/2019 Administered Zoster Unknown 10/10/2015 Administered Pneumococcal conjugate PCV 13 IM Intramuscular 11/15/2017 Administered Social History Tobacco Use: Social History Observation Description Date Details (start date - stop date) Current Smoker NA - NA Social History Drugs/Alcohol: Social Info Question Answer Notes Drugs Have you used drugs other than those for medical reasons in the past 12 months? No Tobacco Use: Social Info Question Answer Notes Tobacco Use/Smoking Are you a current smoker How often do you smoke cigarettes? every day How many cigarettes a day do you smoke? 5 or less Additional Details Category Social Info Options Details Drugs/Alcohol: Do you smoke marijuana? De nies Do you drink alcohol? No Section Notes: reports quit alcohol use 12/20 reports quit alcohol use 12/20 reports quit alcohol use 12/20 reports quit alcohol use 12/20 reports quit alcohol use 12/20 alcohol twice a week Cigars daily Denies rec drug use alcohol twice a week Cigars daily Denies rec drug use Problems Problem Type SNOMED Code ICD Code Onset Dates Problem Status W/U Status Risk Notes Problem Myelodysplastic syndrome (195106830) Myelodysplastic syndrome, unspecified (D46.9) Active confirmed Problem Testicular hypofunction (486938935) Testicular hypofunction (E29.1) Active confirmed Problem Vitamin D deficiency (36262072) Vitamin D deficiency, unspecified (E55.9) Active confirmed Problem Mixed hyperlipidemia (931489154) Mixed hyperlipidemia (E78.2) Active confirmed Problem Hyperlipidemia (99708218) Hyperlipidemia, unspecified (E78.5) Active confirmed Problem Chronic pain (38468665) Other chronic pain (G89.29) Active confirmed Problem Glaucoma (65193653) Unspecified glaucoma (H40.9) Active confirmed Problem Essential hypertension (27649664) Essential (primary) hypertension (I10) Active confirmed Problem Adult health examination (666762121) Encounter for general adult medical examination without abnormal findings (Z00.00) Active confirmed Problem Body mass index 30.0 0 to 34.99 (824217118070161) Body mass index (BMI) 31.0-31.9, adult (Z68.31) Active confirmed Problem Type II diabetes mellitus without complication (450824141) Type 2 diabetes mellitus without complications (E11.9) Active confirmed Problem Disorder due to type 2 diabetes mellitus (470082683) Type 2 diabetes mellitus with complication, unspecified whether residential insulin use (E11.8) Active confirmed Problem Hyperlipidaemia (86681731) Hyperlipidemia, unspecified hyperlipidemia type (E78.5) Active confirmed Problem Hyperlipoproteinemia (2913233) 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) Active confirmed Problem Adult health examination (736547015) Adult general medical exam (Z00.00) Active confirmed Problem Hypothyroidism (45822371) Hypothyroidism, unspecified type (E03.9) Active confirmed Problem Disorder due to type 2 diabetes mellitus (610028401) Type 2 diabetes mellitus with complications (E11.8) Active confirmed Problem Heart failure (37594912) Congestive heart failure, unspecified HF chronicity, unspecified heart failure type (I50.9) Active confirmed Problem Cardiomyopathy (86710945) Cardiomyopathy, unspecified type (I42.9) Active confirmed Problem Chronic kidney disease stage 3 (disorder) (321346959) Stage 3 chronic kidney disease, unspecified whether stage 3a or 3b CKD (N18.30) Active confirmed Problem Chronic systolic heart failure (369885854) Chronic systolic heart failure (I50.22) Active confirmed Problem Atherosclerotic hear t disease of [place] coronary artery without angina pectoris (453154247606393) Atherosclerosis of coronary artery of [place] heart without angina pectoris, unspecified vessel or lesion type (I25.10) Active confirmed Problem Cardiomyopathy (82758607) Nonischemic cardiomyopathy (I42.8) Active confirmed Problem Physical deconditioning (51174074064375) Physical deconditioning (R53.81) Active confirmed Problem History of fall (617958304) Risk for falls (Z91.81) Active confirmed Problem Chronic kidney disease stage 3A (disorder) (935273088) Stage 3a chronic kidney disease (CKD) (N18.31) Active confirmed Problem Elevated fasting lipid profile (033422994466) Elevated lipids (E78.5) Active confirmed Problem Screening for malignant neoplasm of prostate (683835164) Encounter for prostate cancer screening (Z12.5) Active confirmed Problem Chronic anemia (157557103) Chronic anemia (D64.9) Active confirmed Problem Heart failure (04619082) Other congestive heart failure (I50.9) Active confirmed Problem Automatic implantabl e cardiac defibrillator in situ (880299617) ICD (implantable cardioverter-defibril lator) in place (Z95.810) Active confirmed Problem Presence of drug coated stent in LAD coronary artery (Z95.5) Active confirmed Vital Signs Heart Rate 91 /min 08/17/2025 Oximetry 98 % 08/17/2025 Blood pressure diastolic 60 mm Hg 08/17/2025 Height 69 in 08/17/2025 Blood pressure systolic 118 mm Hg 08/17/2025 Weight 207.7 lbs 08/17/2025 BMI 30.67 kg/m2 08/17/2025 Encounters Encounter Location Date Provider Diagnosis [facility] [address] [address] 10/29/2024 TALAL SULLIVAN Foot pain, right M79 .671 ; Mixed hyperlipidemia E78.2 ; Type 2 diabetes mellitus without complications E11.9 ; Myelodysplastic syndrome, unspecified D46.9 ; Essential (primary) hypertension I10 ; Presence of drug coated stent in LAD coronary artery Z95.5 ; Chronic systolic heart failure I50.22 ; ICD (implantable cardioverter-defibrillato r) in place Z95.810 ; Cardiomyopathy, unspecified type I42.9 and Testicular hypofunction E29.1 [facility] [address] [address] 01/28/2025 Rossy Svrcek Essential (primary) hypertension I10 ; Presence of drug coated stent in LAD coronary artery Z95.5 ; Chronic systolic heart failure I50.22 ; ICD (implantable cardioverter-defibrillato r) in place Z95.810 ; Cardiomyopathy, unspecified type I42.9 ; Type 2 diabetes mellitus without complications E11.9 ; Mixed hyperlipidemia E78.2 ; Testicular hypofunction E29.1 ; Myelodysplastic syndrome, unspecified D46.9 and Chronic anemia D64.9 [facility] [address] [address] 05/04/2025 Rossy Svrcek Essential (primary) hypertension I10 ; Annual wellness visit Z00.00 ; Presence of drug coated stent in LAD coronary artery Z95.5 ; Chronic systolic heart failure I50.22 ; ICD (implantable cardioverter-defibrillato r) in place Z95.810 ; Cardiomyopathy, unspecified type I42.9 ; Type 2 diabetes mellitus without complications E11.9 ; Mixed hyperlipidemia E78.2 ; Myelodysplastic syndrome, unspecified D46.9 ; Stage 3a chronic kidney disease (CKD) N18.31 ; Encounter for screening for other disorder Z13.89 and Alcohol screening Z13.39 [facility] [address] [address] 08/17/2025 Rossy Svrcek Essential (primary) hypertension I10 ; Swelling of lower extremity M79.89 ; Presence of drug coated stent in LAD coronary artery Z95.5 ; Chronic systolic heart failure I50.22 ; Cardiomyopathy, unspecified type I42.9 ; Type 2 diabetes mellitus without complications E11.9 ; Mixed hyperlipidemia E78.2 ; Myelodysplastic syndrome, unspecified D46.9 ; Stage 3a chronic kidney disease (CKD) N18.31 and Left hip pain M25.552 [facility] [address] [address] 10/22/[address] [facility] [address] [place] [address] 11/03/2024 Rossy Svrcek Foot pain, right M79 .671 [facility] [address] 11/09/2024 Rossy Svrcek [facility] [address] 11/12/2024 Rossy Svrcek [facility] [address] [address] 11/26/2024 TALAL SULLIVAN [facility] [address] [address] 12/15/2024 Rossy Svrcek [facility] [address] [address] 02/10/2025 Rossy Svrcek [facility] [address] [place] [address] 02/12/2025 TALAL SULLIVAN [facility] [address] [address] 04/26/2025 Rossy Svrcek [facility] [address] [place] [address] 05/04/2025 Rossy Svrcek [facility] [address] [place] [address] 05/06/2025 Rossy Svrcek [facility] [address] [place] [address] 05/11/2025 REBECCA SULLIVAN [facility] [address] [place] [address] 08/17/2025 Rossy Svrcek [facility] [address] [place] [address] 09/13/2025 MARIANA HERRERA Assessments Encounter Date Diagnosis (ICD Code) Assessment Notes Treatment Notes Treatment Clinical Notes Section Notes 10/29/2024 Foot pain, right (ICD-10 - M79.671) #HTN- BP well controlled on current regimen. #IAN to LAD- Stent placed 11/25/23 LAD. Now on Brilinta and ASA. Denies CP or SOB. Follow up wiht Dr. Contreras. PLans to take him off Brilinta in Nov and will clear him for colonoscopy after that. #CHF- Breathing has been stable. No edema. Lungs clear on exam. Follow up with cardiology. #ICD in place- placed 12/[address] Gonzales. Well healed. #Cardiomyopathy- Recent cardiac MRI and subsequent cath with stent placement as above. Follow-up with [facility] cardiology # DM- home readings well controlled. Continue farxiga and metformin. Hemoglobin A1c is up to 7.5 continue to monitor #Hyperlipidemia- on statin- Lipids well controlled. Check f/u labs prior to next visit. #MDS- Labs remain stable Will follow-up on x-ray for the foot pain. Patient will come back in 3 months with office hemoglobin A1c 11/03/2024 Foot pain, right (ICD-10 - M79.671) 01/28/2025 Essential (primary) hypertension (ICD-10 - I10) #HTN- BP well controlled on current regimen. #IAN to LAD- Stent placed 11/25/23 LAD. Now off Brilinta. Denies CP or SOB. Had recent follow up with Dr. Contreras last month and will see him q 6 months. #CHF- Breathing has been stable. No edema. Lungs clear on exam. Follow up with cardiology. #ICD in place- placed 12/[address] Gonzales. Well healed. Had interrigation done at recent cardiology visit. #Cardiomyopathy- Followed by Dr. Contreras. ICD in place. # DM- home readings well controlled. Continue farxiga and metformin. A1C 6.4, down from 6.7 at last visit. Recheck in 3 months. #Hyperlipidemia- on statin- Lipids well controlled. Schedule MWV with labs prior. #MDS- will follow labs. Followed by Dr. Clarke yearly- recent visit 11/2024. #Anemia- On B12 injections monthly as well as iron supplementation. Followed by Dr. Clarke. Case discussed with collaborating physician Devon Sullivan who reviewed the assessment and plan. Chart, medications, labs, vital signs reviewed. Dictation was accomplished with the use of PLDT voice recognition software, prone to medical misidentifications and grammatical errors. This is unintentional and the practitioner does try to identify and correct these, but some could still be present. Please do not hesitate to contact practitioner for clarification. All questions answered to patients satisfaction. Patient verbalized understanding of diagnosis and treatments explained. To call sooner prior to next visit it any questions/concerns arise. 01/28/2025 Presence of drug coated stent in LAD coronary artery (ICD-10 - Z95.5) #HTN- BP well controlled on current regimen. #IAN to LAD- Stent placed 11/25/23 LAD. Now off Brilinta. Denies CP or SOB. Had recent follow up with Dr. Contreras last month and will see him q 6 months. #CHF- Breathing has been stable. No edema. Lungs clear on exam. Follow up with cardiology. #ICD in place- placed 12/[address] Gonzales. Well healed. Had interrigation done at recent cardiology visit. #Cardiomyopathy- Followed by Dr. Contreras. ICD in place. # DM- home readings well controlled. Continue farxiga and metformin. A1C 6.4, down from 6.7 at last visit. Recheck in 3 months. #Hyperlipidemia- on statin- Lipids well controlled. Schedule MWV with labs prior. #MDS- will follow labs. Followed by Dr. Clarke yearly- recent visit 11/2024. #Anemia- On B12 injections monthly as well as iron supplementation. Followed by Dr. Clarke. Case discussed with collaborating physician Devon Sullivan who reviewed the assessment and plan. Chart, medications, labs, vital signs reviewed. Dictation was accomplished with the use of PLDT voice recognition software, prone to medical misidentifications and grammatical errors. This is unintentional and the practitioner does try to identify and correct these, but some could still be present. Please do not hesitate to contact practitioner for clarification. All questions answered to patients satisfaction. Patient verbalized understanding of diagnosis and treatments explained. To call sooner prior to next visit it any questions/concerns arise. 05/04/2025 Essential (primary) hypertension (ICD-10 - I10) #Annual wellness. Complex medical history but in stable health. Colonoscopy up-to-date November 2024 with repeat due November 2027. Will be due for updated tetanus vaccine next year. Healthcare proxy is up-to-date in chart. Continue to work on healthy diet and exercise as tolerated. PHQ-9 . AUDIT-C 12/02. #HTN- BP well controlled on current regimen. #IAN to LAD- Stent placed 11/25/23 LAD. Now off Brilinta. Denies CP or SOB. Had recent follow up with Dr. Contreras and will see him q 6 months. #CHF- Breathing has been stable. No edema. Lungs clear on exam. Follow up with cardiology. #ICD in place- placed 12/[address] Gonzales. Well healed. #Cardiomyopathy- Followed by Dr. Contreras. ICD in place. # DM- home readings well controlled. Continue farxiga and metformin. A1C 6.4, down from 6.7 at last visit. Recheck in 3 months #Hyperlipidemia- on statin- Lipids well controlled. TG mildly elevated. Discussed dietary modifications. #MDS- will follow labs. Followed by Dr. Clarke yearly- recent visit 11/2024. #Anemia- On B12 injections monthly as well as iron supplementation. Followed by Dr. Clarke. Case discussed with collaborating physician Devon Sullivan who reviewed the assessment and plan. Chart, medications, labs, vital signs reviewed. Dictation was accomplished with the use of PLDT voice recognition software, prone to medical misidentifications and grammatical errors. This is unintentional and the practitioner does try to identify and correct these, but some could still be present. Please do not hesitate to contact practitioner for clarification. All questions answered to patients satisfaction. Patient verbalized understanding of diagnosis and treatments explained. To call sooner prior to next visit it any questions/concerns arise. 05/04/2025 Annual wellness visit (ICD-10 - Z00.00) #Annual wellness. Complex medical history but in stable health. Colonoscopy up-to-date November 2024 with repeat due November 2027. Will be due for updated tetanus vaccine next year. Healthcare proxy is up-to-date in chart. Continue to work on healthy diet and exercise as tolerated. PHQ-9 . AUDIT-C 12/02. #HTN- BP well controlled on current regimen. #IAN to LAD- Stent placed 11/25/23 LAD. Now off Brilinta. Denies CP or SOB. Had recent follow up with Dr. Contreras and will see him q 6 months. #CHF- Breathing has been stable. No edema. Lungs clear on exam. Follow up with cardiology. #ICD in place- placed 12/[address] Gonzales. Well healed. #Cardiomyopathy- Followed by Dr. Contreras. ICD in place. # DM- home readings well controlled. Continue farxiga and metformin. A1C 6.4, down from 6.7 at last visit. Recheck in 3 months #Hyperlipidemia- on statin- Lipids well controlled. TG mildly elevated. Discussed dietary modifications. #MDS- will follow labs. Followed by Dr. Clarke yearly- recent visit 11/2024. #Anemia- On B12 injections monthly as well as iron supplementation. Followed by Dr. Clarke. Case discussed with collaborating physician Devon Sullivan who reviewed the assessment and plan. Chart, medications, labs, vital signs reviewed. Dictation was accomplished with the use of PLDT voice recognition software, prone to medical misidentifications and grammatical errors. This is unintentional and the practitioner does try to identify and correct these, but some could still be present. Please do not hesitate to contact practitioner for clarification. All questions answered to patients satisfaction. Patient verbalized understanding of diagnosis and treatments explained. To call sooner prior to next visit it any questions/concerns arise. 08/17/2025 Essential (primary) hypertension (ICD-10 - I10) #RLE edema- He has noticed right leg swelling over the last 2 to 3 weeks. No injury. Denies any pain warmth to the area. Wound seems to be changing just staying slightly larger than his left lower extremity. Will get ultrasound to rule out DVT today. Follow-up pending results. Denies any chest pain or shortness of breath. Discussed ED precautions with any new or worsening symptoms. He is comfortable with plan. #HTN- BP well controlled on current regimen. #IAN to LAD- Stent placed 11/25/23 LAD. Now off Brilinta. Denies CP or SOB. Had recent follow up with Dr. Contreras and will see him q 6 months. #CHF- Breathing has been stable. Lungs clear on exam. Follow up with cardiology. #Cardiomyopathy- Followed by Dr. Contreras. ICD in place. # DM- home readings well controlled. Continue farxiga and metformin. A1C 5.6, down from 6.4. We did discuss option of cutting back on Metformin, however he prefers to remain at current dose for now. Recheck in 3 months #Hyperlipidemia- on statin- Lipids well controlled. TG mildly elevated. Discussed dietary modifications. #MDS- will follow labs. Followed by Dr. Clarke yearly- last visit 11/2024. #Anemia- On B12 injections monthly as well as iron supplementation. Followed by Dr. Clarke. #Left hip pain. Ongoing for several months. No known injury. Discussed options/workup. Preference for referall to Ortho. WIll refer to [facility]. Case discussed with collaborating physician Devon Sullivan who reviewed the assessment and plan. Chart, medications, labs, vital signs reviewed. Dictation was accomplished with the use of PLDT voice recognition software, prone to medical misidentifications and grammatical errors. This is unintentional and the practitioner does try to identify and correct these, but some could still be present. Please do not hesitate to contact practitioner for clarification. All questions answered to patients satisfaction. Patient verbalized understanding of diagnosis and treatments explained. To call sooner prior to next visit it any questions/concerns arise. 08/17/2025 Swelling of lower extremity (ICD-10 - M79.89) #RLE edema- He has noticed right leg swelling over the last 2 to 3 weeks. No injury. Denies any pain warmth to the area. Wound seems to be changing just staying slightly larger than his left lower extremity. Will get ultrasound to rule out DVT today. Follow-up pending results. Denies any chest pain or shortness of breath. Discussed ED precautions with any new or worsening symptoms. He is comfortable with plan. #HTN- BP well controlled on current regimen. #IAN to LAD- Stent placed 11/25/23 LAD. Now off Brilinta. Denies CP or SOB. Had recent follow up with Dr. Contreras and will see him q 6 months. #CHF- Breathing has been stable. Lungs clear on exam. Follow up with cardiology. #Cardiomyopathy- Followed by Dr. Contreras. ICD in place. # DM- home readings well controlled. Continue farxiga and metformin. A1C 5.6, down from 6.4. We did discuss option of cutting back on Metformin, however he prefers to remain at current dose for now. Recheck in 3 months #Hyperlipidemia- on statin- Lipids well controlled. TG mildly elevated. Discussed dietary modifications. #MDS- will follow labs. Followed by Dr. Clarke yearly- last visit 11/2024. #Anemia- On B12 injections monthly as well as iron supplementation. Followed by Dr. Clarke. #Left hip pain. Ongoing for several months. No known injury. Discussed options/workup. Preference for referall to Ortho. WIll refer to [facility]. Case discussed with collaborating physician Devon Sullivan who reviewed the assessment and plan. Chart, medications, labs, vital signs reviewed. Dictation was accomplished with the use of PLDT voice recognition software, prone to medical misidentifications and grammatical errors. This is unintentional and the practitioner does try to identify and correct these, but some could still be present. Please do not hesitate to contact practitioner for clarification. All questions answered to patients satisfaction. Patient verbalized understanding of diagnosis and treatments explained. To call sooner prior to next visit it any questions/concerns arise. 08/17/2025 Presence of drug coated stent in LAD coronary artery (ICD-10 - Z95.5) #RLE edema- He has noticed right leg swelling over the last 2 to 3 weeks. No injury. Denies any pain warmth to the area. Wound seems to be changing just staying slightly larger than his left lower extremity. Will get ultrasound to rule out DVT today. Follow-up pending results. Denies any chest pain or shortness of breath. Discussed ED precautions with any new or worsening symptoms. He is comfortable with plan. #HTN- BP well controlled on current regimen. #IAN to LAD- Stent placed 11/25/23 LAD. Now off Brilinta. Denies CP or SOB. Had recent follow up with Dr. Contreras and will see him q 6 months. #CHF- Breathing has been stable. Lungs clear on exam. Follow up with cardiology. #Cardiomyopathy- Followed by Dr. Contreras. ICD in place. # DM- home readings well controlled. Continue farxiga and metformin. A1C 5.6, down from 6.4. We did discuss option of cutting back on Metformin, however he prefers to remain at current dose for now. Recheck in 3 months #Hyperlipidemia- on statin- Lipids well controlled. TG mildly elevated. Discussed dietary modifications. #MDS- will follow labs. Followed by Dr. Clarke yearly- last visit 11/2024. #Anemia- On B12 injections monthly as well as iron supplementation. Followed by Dr. Clarke. #Left hip pain. Ongoing for several months. No known injury. Discussed options/workup. Preference for referall to Ortho. WIll refer to [facility]. Case discussed with collaborating physician Devon Sullivan who reviewed the assessment and plan. Chart, medications, labs, vital signs reviewed. Dictation was accomplished with the use of PLDT voice recognition software, prone to medical misidentifications and grammatical errors. This is unintentional and the practitioner does try to identify and correct these, but some could still be present. Please do not hesitate to contact practitioner for clarification. All questions answered to patients satisfaction. Patient verbalized understanding of diagnosis and treatments explained. To call sooner prior to next visit it any questions/concerns arise. 05/04/2025 Presence of drug coated stent in LAD coronary artery (ICD-10 - Z95.5) #Annual wellness. Complex medical history but in stable health. Colonoscopy up-to-date November 2024 with repeat due November 2027. Will be due for updated tetanus vaccine next year. Healthcare proxy is up-to-date in chart. Continue to work on healthy diet and exercise as tolerated. PHQ-9 . AUDIT-C 12/02. #HTN- BP well controlled on current regimen. #IAN to LAD- Stent placed 11/25/23 LAD. Now off Brilinta. Denies CP or SOB. Had recent follow up with Dr. Contreras and will see him q 6 months. #CHF- Breathing has been stable. No edema. Lungs clear on exam. Follow up with cardiology. #ICD in place- placed 12/[address] Gonzaels. Well healed. #Cardiomyopathy- Followed by Dr. Contreras. ICD in place. # DM- home readings well controlled. Continue farxiga and metformin. A1C 6.4, down from 6.7 at last visit. Recheck in 3 months #Hyperlipidemia- on statin- Lipids well controlled. TG mildly elevated. Discussed dietary modifications. #MDS- will follow labs. Followed by Dr. Clarke yearly- recent visit 11/2024. #Anemia- On B12 injections monthly as well as iron supplementation. Followed by Dr. Clarke. Case discussed with collaborating physician Devon Sullivan who reviewed the assessment and plan. Chart, medications, labs, vital signs reviewed. Dictation was accomplished with the use of PLDT voice recognition software, prone to medical misidentifications and grammatical errors. This is unintentional and the practitioner does try to identify and correct these, but some could still be present. Please do not hesitate to contact practitioner for clarification. All questions answered to patients satisfaction. Patient verbalized understanding of diagnosis and treatments explained. To call sooner prior to next visit it any questions/concerns arise. 01/28/2025 Chronic systolic heart failure (ICD-10 - I50.22) #HTN- BP well controlled on current regimen. #IAN to LAD- Stent placed 11/25/23 LAD. Now off Brilinta. Denies CP or SOB. Had recent follow up with Dr. Contreras last month and will see him q 6 months. #CHF- Breathing has been stable. No edema. Lungs clear on exam. Follow up with cardiology. #ICD in place- placed 12/[address] Gonzales. Well healed. Had interrigation done at recent cardiology visit. #Cardiomyopathy- Followed by Dr. Contreras. ICD in place. # DM- home readings well controlled. Continue farxiga and metformin. A1C 6.4, down from 6.7 at last visit. Recheck in 3 months. #Hyperlipidemia- on statin- Lipids well controlled. Schedule MWV with labs prior. #MDS- will follow labs. Followed by Dr. Clarke yearly- recent visit 11/2024. #Anemia- On B12 injections monthly as well as iron supplementation. Followed by Dr. Clarke. Case discussed with collaborating physician Devon Sullivan who reviewed the assessment and plan. Chart, medications, labs, vital signs reviewed. Dictation was accomplished with the use of PLDT voice recognition software, prone to medical misidentifications and grammatical errors. This is unintentional and the practitioner does try to identify and correct these, but some could still be present. Please do not hesitate to contact practitioner for clarification. All questions answered to patients satisfaction. Patient verbalized understanding of diagnosis and treatments explained. To call sooner prior to next visit it any questions/concerns arise. 10/29/2024 Mixed hyperlipidemia (ICD-10 - E78.2) #HTN- BP well controlled on current regimen. #AIN to LAD- Stent placed 11/25/23 LAD. Now on Brilinta and ASA. Denies CP or SOB. Follow up wiht Dr. Contreras. PLans to take him off Brilinta in Nov and will clear him for colonoscopy after that. #CHF- Breathing has been stable. No edema. Lungs clear on exam. Follow up with cardiology. #ICD in place- placed 12/[address] Gonzales. Well healed. #Cardiomyopathy- Recent cardiac MRI and subsequent cath with stent placement as above. Follow-up with [facility] cardiology # DM- home readings well controlled. Continue farxiga and metformin. Hemoglobin A1c is up to 7.5 continue to monitor #Hyperlipidemia- on statin- Lipids well controlled. Check f/u labs prior to next visit. #MDS- Labs remain stable Will follow-up on x-ray for the foot pain. Patient will come back in 3 months with office hemoglobin A1c 10/29/2024 Type 2 diabetes mellitus without complications (ICD-10 - E11.9) #HTN- BP well controlled on current regimen. #IAN to LAD- Stent placed 11/25/23 LAD. Now on Brilinta and ASA. Denies CP or SOB. Follow up wiht Dr. Contreras. PLans to take him off Brilinta in Nov and will clear him for colonoscopy after that. #CHF- Breathing has been stable. No edema. Lungs clear on exam. Follow up with cardiology. #ICD in place- placed 12/[address] Gonzales. Well healed. #Cardiomyopathy- Recent cardiac MRI and subsequent cath with stent placement as above. Follow-up with [facility] # DM- home readings well controlled. Continue farxiga and metformin. Hemoglobin A1c is up to 7.5 continue to monitor #Hyperlipidemia- on statin- Lipids well controlled. Check f/u labs prior to next visit. #MDS- Labs remain stable Will follow-up on x-ray for the foot pain. Patient will come back in 3 months with office hemoglobin A1c 01/28/2025 ICD (implantable cardioverter-defib rillator) in place (ICD-10 - Z95.810) #HTN- BP well controlled on current regimen. #IAN to LAD- Stent placed 11/25/23 LAD. Now off Brilinta. Denies CP or SOB. Had recent follow up with Dr. Contreras last month and will see him q 6 months. #CHF- Breathing has been stable. No edema. Lungs clear on exam. Follow up with cardiology. #ICD in place- placed 12/[address] Gonzales. Well healed. Had interrigation done at recent cardiology visit. #Cardiomyopathy- Followed by Dr. Contreras. ICD in place. # DM- home readings well controlled. Continue farxiga and metformin. A1C 6.4, down from 6.7 at last visit. Recheck in 3 months. #Hyperlipidemia- on statin- Lipids well controlled. Schedule MWV with labs prior. #MDS- will follow labs. Followed by Dr. Clarke yearly- recent visit 11/2024. #Anemia- On B12 injections monthly as well as iron supplementation. Followed by Dr. Clarke. Case discussed with collaborating physician Devon Sullivan who reviewed the assessment and plan. Chart, medications, labs, vital signs reviewed. Dictation was accomplished with the use of PLDT voice recognition software, prone to medical misidentifications and grammatical errors. This is unintentional and the practitioner does try to identify and correct these, but some could still be present. Please do not hesitate to contact practitioner for clarification. All questions answered to patients satisfaction. Patient verbalized understanding of diagnosis and treatments explained. To call sooner prior to next visit it any questions/concerns arise. 05/04/2025 Chronic systolic heart failure (ICD-10 - I50.22) #Annual wellness. Complex medical history but in stable health. Colonoscopy up-to-date November 2024 with repeat due November 2027. Will be due for updated tetanus vaccine next year. Healthcare proxy is up-to-date in chart. Continue to work on healthy diet and exercise as tolerated. PHQ-9 . AUDIT-C 12/02. #HTN- BP well controlled on current regimen. #IAN to LAD- Stent placed 11/25/23 LAD. Now off Brilinta. Denies CP or SOB. Had recent follow up with Dr. Contreras and will see him q 6 months. #CHF- Breathing has been stable. No edema. Lungs clear on exam. Follow up with cardiology. #ICD in place- placed 12/[address] Gonzales. Well healed. #Cardiomyopathy- Followed by Dr. Contreras. ICD in place. # DM- home readings well controlled. Continue farxiga and metformin. A1C 6.4, down from 6.7 at last visit. Recheck in 3 months #Hyperlipidemia- on statin- Lipids well controlled. TG mildly elevated. Discussed dietary modifications. #MDS- will follow labs. Followed by Dr. Clarke yearly- recent visit 11/2024. #Anemia- On B12 injections monthly as well as iron supplementation. Followed by Dr. Clarke. Case discussed with collaborating physician Devon Sullivan who reviewed the assessment and plan. Chart, medications, labs, vital signs reviewed. Dictation was accomplished with the use of PLD[employer] voice recognition software, prone to medical misidentifications and grammatical errors. This is unintentional and the practitioner does try to identify and correct these, but some could still be present. Please do not hesitate to contact practitioner for clarification. All questions answered to patients satisfaction. Patient verbalized understanding of diagnosis and treatments explained. To call sooner prior to next visit it any questions/concerns arise. 08/17/2025 Chronic systolic heart failure (ICD-10 - I50.22) #RLE edema- He has noticed right leg swelling over the last 2 to 3 weeks. No injury. Denies any pain warmth to the area. Wound seems to be changing just staying slightly larger than his left lower extremity. Will get ultrasound to rule out DVT today. Follow-up pending results. Denies any chest pain or shortness of breath. Discussed ED precautions with any new or worsening symptoms. He is comfortable with plan. #HTN- BP well controlled on current regimen. #IAN to LAD- Stent placed 11/25/23 LAD. Now off Brilinta. Denies CP or SOB. Had recent follow up with Dr. Contreras and will see him q 6 months. #CHF- Breathing has been stable. Lungs clear on exam. Follow up with cardiology. #Cardiomyopathy- Followed by Dr. Contreras. ICD in place. # DM- home readings well controlled. Continue farxiga and metformin. A1C 5.6, down from 6.4. We did discuss option of cutting back on Metformin, however he prefers to remain at current dose for now. Recheck in 3 months #Hyperlipidemia- on statin- Lipids well controlled. TG mildly elevated. Discussed dietary modifications. #MDS- will follow labs. Followed by Dr. Clarke yearly- last visit 11/2024. #Anemia- On B12 injections monthly as well as iron supplementation. Followed by Dr. Clarke. #Left hip pain. Ongoing for several months. No known injury. Discussed options/workup. Preference for referall to Ortho. WIll refer to [facility]. Case discussed with collaborating physician Devon Sullivan who reviewed the assessment and plan. Chart, medications, labs, vital signs reviewed. Dictation was accomplished with the use of P[employer] voice recognition software, prone to medical misidentifications and grammatical errors. This is unintentional and the practitioner does try to identify and correct these, but some could still be present. Please do not hesitate to contact practitioner for clarification. All questions answered to patients satisfaction. Patient verbalized understanding of diagnosis and treatments explained. To call sooner prior to next visit it any questions/concerns arise. 08/17/2025 Cardiomyopathy, unspecified type (ICD-10 - I42.9) #RLE edema- He has noticed right leg swelling over the last 2 to 3 weeks. No injury. Denies any pain warmth to the area. Wound seems to be changing just staying slightly larger than his left lower extremity. Will get ultrasound to rule out DVT today. Follow-up pending results. Denies any chest pain or shortness of breath. Discussed ED precautions with any new or worsening symptoms. He is comfortable with plan. #HTN- BP well controlled on current regimen. #IAN to LAD- Stent placed 11/25/23 LAD. Now off Brilinta. Denies CP or SOB. Had recent follow up with Dr. Contreras and will see him q 6 months. #CHF- Breathing has been stable. Lungs clear on exam. Follow up with cardiology. #Cardiomyopathy- Followed by Dr. Contreras. ICD in place. # DM- home readings well controlled. Continue farxiga and metformin. A1C 5.6, down from 6.4. We did discuss option of cutting back on Metformin, however he prefers to remain at current dose for now. Recheck in 3 months #Hyperlipidemia- on statin- Lipids well controlled. TG mildly elevated. Discussed dietary modifications. #MDS- will follow labs. Followed by Dr. Clarke yearly- last visit 11/2024. #Anemia- On B12 injections monthly as well as iron supplementation. Followed by Dr. Clarke. #Left hip pain. Ongoing for several months. No known injury. Discussed options/workup. Preference for referall to Ortho. WIll refer to [facility]. Case discussed with collaborating physician Devon Sullivan who reviewed the assessment and plan. Chart, medications, labs, vital signs reviewed. Dictation was accomplished with the use of P[employer] voice recognition software, prone to medical misidentifications and grammatical errors. This is unintentional and the practitioner does try to identify and correct these, but some could still be present. Please do not hesitate to contact practitioner for clarification. All questions answered to patients satisfaction. Patient verbalized understanding of diagnosis and treatments explained. To call sooner prior to next visit it any questions/concerns arise. 05/04/2025 ICD (implantable cardioverter-defib rillator) in place (ICD-10 - Z95.810) #Annual wellness. Complex medical history but in stable health. Colonoscopy up-to-date November 2024 with repeat due November 2027. Will be due for updated tetanus vaccine next year. Healthcare proxy is up-to-date in chart. Continue to work on healthy diet and exercise as tolerated. PHQ-9 . AUDIT-C 12/02. #HTN- BP well controlled on current regimen. #IAN to LAD- Stent placed 11/25/23 LAD. Now off Brilinta. Denies CP or SOB. Had recent follow up with Dr. Contreras and will see him q 6 months. #CHF- Breathing has been stable. No edema. Lungs clear on exam. Follow up with cardiology. #ICD in place- placed 12/[address] Gonzales. Well healed. #Cardiomyopathy- Followed by Dr. Contreras. ICD in place. # DM- home readings well controlled. Continue farxiga and metformin. A1C 6.4, down from 6.7 at last visit. Recheck in 3 months #Hyperlipidemia- on statin- Lipids well controlled. TG mildly elevated. Discussed dietary modifications. #MDS- will follow labs. Followed by Dr. Clarke yearly- recent visit 11/2024. #Anemia- On B12 injections monthly as well as iron supplementation. Followed by Dr. Clarke. Case discussed with collaborating physician Devon Sullivan who reviewed the assessment and plan. Chart, medications, labs, vital signs reviewed. Dictation was accomplished with the use of P[employer] voice recognition software, prone to medical misidentifications and grammatical errors. This is unintentional and the practitioner does try to identify and correct these, but some could still be present. Please do not hesitate to contact practitioner for clarification. All questions answered to patients satisfaction. Patient verbalized understanding of diagnosis and treatments explained. To call sooner prior to next visit it any questions/concerns arise. 01/28/2025 Cardiomyopathy, unspecified type (ICD-10 - I42.9) #HTN- BP well controlled on current regimen. #IAN to LAD- Stent placed 11/25/23 LAD. Now off Brilinta. Denies CP or SOB. Had recent follow up with Dr. Contreras last month and will see him q 6 months. #CHF- Breathing has been stable. No edema. Lungs clear on exam. Follow up with cardiology. #ICD in place- placed 12/[address] Gonzales. Well healed. Had interrigation done at recent cardiology visit. #Cardiomyopathy- Followed by Dr. Contreras. ICD in place. # DM- home readings well controlled. Continue farxiga and metformin. A1C 6.4, down from 6.7 at last visit. Recheck in 3 months. #Hyperlipidemia- on statin- Lipids well controlled. Schedule MWV with labs prior. #MDS- will follow labs. Followed by Dr. Clarke yearly- recent visit 11/2024. #Anemia- On B12 injections monthly as well as iron supplementation. Followed by Dr. Clarke. Case discussed with collaborating physician Devon Sullvian who reviewed the assessment and plan. Chart, medications, labs, vital signs reviewed. Dictation was accomplished with the use of PLD[employer] voice recognition software, prone to medical misidentifications and grammatical errors. This is unintentional and the practitioner does try to identify and correct these, but some could still be present. Please do not hesitate to contact practitioner for clarification. All questions answered to patients satisfaction. Patient verbalized understanding of diagnosis and treatments explained. To call sooner prior to next visit it any questions/concerns arise. 10/29/2024 Myelodysplastic syndrome, unspecified (ICD-10 - D46.9) #HTN- BP well controlled on current regimen. #IAN to LAD- Stent placed 11/25/23 LAD. Now on Brilinta and ASA. Denies CP or SOB. Follow up wiht Dr. Contreras. PLans to take him off Brilinta in Nov and will clear him for colonoscopy after that. #CHF- Breathing has been stable. No edema. Lungs clear on exam. Follow up with cardiology. #ICD in place- placed 12/[address] Gonzales. Well healed. #Cardiomyopathy- Recent cardiac MRI and subsequent cath with stent placement as above. Follow-up with [facility] cardiology # DM- home readings well controlled. Continue farxiga and metformin. Hemoglobin A1c is up to 7.5 continue to monitor #Hyperlipidemia- on statin- Lipids well controlled. Check f/u labs prior to next visit. #MDS- Labs remain stable Will follow-up on x-ray for the foot pain. Patient will come back in 3 months with office hemoglobin A1c 10/29/2024 Essential (primary) hypertension (ICD-10 - I10) #HTN- BP well controlled on current regimen. #IAN to LAD- Stent placed 11/25/23 LAD. Now on Brilinta and ASA. Denies CP or SOB. Follow up wiht Dr. Contreras. PLans to take him off Brilinta in Nov and will clear him for colonoscopy after that. #CHF- Breathing has been stable. No edema. Lungs clear on exam. Follow up with cardiology. #ICD in place- placed 12/[address] Gonzales. Well healed. #Cardiomyopathy- Recent cardiac MRI and subsequent cath with stent placement as above. Follow-up with [facility] cardiology # DM- home readings well controlled. Continue farxiga and metformin. Hemoglobin A1c is up to 7.5 continue to monitor #Hyperlipidemia- on statin- Lipids well controlled. Check f/u labs prior to next visit. #MDS- Labs remain stable Will follow-up on x-ray for the foot pain. Patient will come back in 3 months with office hemoglobin A1c 01/28/2025 Type 2 diabetes mellitus without complications (ICD-10 - E11.9) #HTN- BP well controlled on current regimen. #IAN to LAD- Stent placed 11/25/23 LAD. Now off Brilinta. Denies CP or SOB. Had recent follow up with Dr. Contreras last month and will see him q 6 months. #CHF- Breathing has been stable. No edema. Lungs clear on exam. Follow up with cardiology. #ICD in place- placed 12/[address] Gonzales. Well healed. Had interrigation done at recent cardiology visit. #Cardiomyopathy- Followed by Dr. Contreras. ICD in place. # DM- home readings well controlled. Continue farxiga and metformin. A1C 6.4, down from 6.7 at last visit. Recheck in 3 months. #Hyperlipidemia- on statin- Lipids well controlled. Schedule MWV with labs prior. #MDS- will follow labs. Followed by Dr. Clarke yearly- recent visit 11/2024. #Anemia- On B12 injections monthly as well as iron supplementation. Followed by Dr. Clarke. Case discussed with collaborating physician Devon Sullivan who reviewed the assessment and plan. Chart, medications, labs, vital signs reviewed. Dictation was accomplished with the use of PLDT voice recognition software, prone to medical misidentifications and grammatical errors. This is unintentional and the practitioner does try to identify and correct these, but some could still be present. Please do not hesitate to contact practitioner for clarification. All questions answered to patients satisfaction. Patient verbalized understanding of diagnosis and treatments explained. To call sooner prior to next visit it any questions/concerns arise. 05/04/2025 Cardiomyopathy, unspecified type (ICD-10 - I42.9) #Annual wellness. Complex medical history but in stable health. Colonoscopy up-to-date November 2024 with repeat due November 2027. Will be due for updated tetanus vaccine next year. Healthcare proxy is up-to-date in chart. Continue to work on healthy diet and exercise as tolerated. PHQ-9 . AUDIT-C 12/02. #HTN- BP well controlled on current regimen. #IAN to LAD- Stent placed 11/25/23 LAD. Now off Brilinta. Denies CP or SOB. Had recent follow up with Dr. Contreras and will see him q 6 months. #CHF- Breathing has been stable. No edema. Lungs clear on exam. Follow up with cardiology. #ICD in place- placed 12/[address] Gonzales. Well healed. #Cardiomyopathy- Followed by Dr. Contreras. ICD in place. # DM- home readings well controlled. Continue farxiga and metformin. A1C 6.4, down from 6.7 at last visit. Recheck in 3 months #Hyperlipidemia- on statin- Lipids well controlled. TG mildly elevated. Discussed dietary modifications. #MDS- will follow labs. Followed by Dr. Clarke yearly- recent visit 11/2024. #Anemia- On B12 injections monthly as well as iron supplementation. Followed by Dr. Clarke. Case discussed with collaborating physician Devon Sullivan who reviewed the assessment and plan. Chart, medications, labs, vital signs reviewed. Dictation was accomplished with the use of P[employer] voice recognition software, prone to medical misidentifications and grammatical errors. This is unintentional and the practitioner does try to identify and correct these, but some could still be present. Please do not hesitate to contact practitioner for clarification. All questions answered to patients satisfaction. Patient verbalized understanding of diagnosis and treatments explained. To call sooner prior to next visit it any questions/concerns arise. 08/17/2025 Type 2 diabetes mellitus without complications (ICD-10 - E11.9) #RLE edema- He has noticed right leg swelling over the last 2 to 3 weeks. No injury. Denies any pain warmth to the area. Wound seems to be changing just staying slightly larger than his left lower extremity. Will get ultrasound to rule out DVT today. Follow-up pending results. Denies any chest pain or shortness of breath. Discussed ED precautions with any new or worsening symptoms. He is comfortable with plan. #HTN- BP well controlled on current regimen. #IAN to LAD- Stent placed 11/25/23 LAD. Now off Brilinta. Denies CP or SOB. Had recent follow up with Dr. Contreras and will see him q 6 months. #CHF- Breathing has been stable. Lungs clear on exam. Follow up with cardiology. #Cardiomyopathy- Followed by Dr. Contreras. ICD in place. # DM- home readings well controlled. Continue farxiga and metformin. A1C 5.6, down from 6.4. We did discuss option of cutting back on Metformin, however he prefers to remain at current dose for now. Recheck in 3 months #Hyperlipidemia- on statin- Lipids well controlled. TG mildly elevated. Discussed dietary modifications. #MDS- will follow labs. Followed by Dr. Clarke yearly- last visit 11/2024. #Anemia- On B12 injections monthly as well as iron supplementation. Followed by Dr. Clarke. #Left hip pain. Ongoing for several months. No known injury. Discussed options/workup. Preference for referall to Ortho. WIll refer to [facility]. Case discussed with collaborating physician Devon Sullivan who reviewed the assessment and plan. Chart, medications, labs, vital signs reviewed. Dictation was accomplished with the use of P[employer] voice recognition software, prone to medical misidentifications and grammatical errors. This is unintentional and the practitioner does try to identify and correct these, but some could still be present. Please do not hesitate to contact practitioner for clarification. All questions answered to patients satisfaction. Patient verbalized understanding of diagnosis and treatments explained. To call sooner prior to next visit it any questions/concerns arise. 08/17/2025 Mixed hyperlipidemia (ICD-10 - E78.2) #RLE edema- He has noticed right leg swelling over the last 2 to 3 weeks. No injury. Denies any pain warmth to the area. Wound seems to be changing just staying slightly larger than his left lower extremity. Will get ultrasound to rule out DVT today. Follow-up pending results. Denies any chest pain or shortness of breath. Discussed ED precautions with any new or worsening symptoms. He is comfortable with plan. #HTN- BP well controlled on current regimen. #IAN to LAD- Stent placed 11/25/23 LAD. Now off Brilinta. Denies CP or SOB. Had recent follow up with Dr. Contreras and will see him q 6 months. #CHF- Breathing has been stable. Lungs clear on exam. Follow up with cardiology. #Cardiomyopathy- Followed by Dr. Contreras. ICD in place. # DM- home readings well controlled. Continue farxiga and metformin. A1C 5.6, down from 6.4. We did discuss option of cutting back on Metformin, however he prefers to remain at current dose for now. Recheck in 3 months #Hyperlipidemia- on statin- Lipids well controlled. TG mildly elevated. Discussed dietary modifications. #MDS- will follow labs. Followed by Dr. Clarke yearly- last visit 11/2024. #Anemia- On B12 injections monthly as well as iron supplementation. Followed by Dr. Clarke. #Left hip pain. Ongoing for several months. No known injury. Discussed options/workup. Preference for referall to Ortho. WIll refer to [facility]. Case discussed with collaborating physician Devon Sullivan who reviewed the assessment and plan. Chart, medications, labs, vital signs reviewed. Dictation was accomplished with the use of P[employer] voice recognition software, prone to medical misidentifications and grammatical errors. This is unintentional and the practitioner does try to identify and correct these, but some could still be present. Please do not hesitate to contact practitioner for clarification. All questions answered to patients satisfaction. Patient verbalized understanding of diagnosis and treatments explained. To call sooner prior to next visit it any questions/concerns arise. 05/04/2025 Type 2 diabetes mellitus without complications (ICD-10 - E11.9) #Annual wellness. Complex medical history but in stable health. Colonoscopy up-to-date November 2024 with repeat due November 2027. Will be due for updated tetanus vaccine next year. Healthcare proxy is up-to-date in chart. Continue to work on healthy diet and exercise as tolerated. PHQ-9 . AUDIT-C 12/02. #HTN- BP well controlled on current regimen. #IAN to LAD- Stent placed 11/25/23 LAD. Now off Brilinta. Denies CP or SOB. Had recent follow up with Dr. Contreras and will see him q 6 months. #CHF- Breathing has been stable. No edema. Lungs clear on exam. Follow up with cardiology. #ICD in place- placed 12/[address] Gonzales. Well healed. #Cardiomyopathy- Followed by Dr. Contreras. ICD in place. # DM- home readings well controlled. Continue farxiga and metformin. A1C 6.4, down from 6.7 at last visit. Recheck in 3 months #Hyperlipidemia- on statin- Lipids well controlled. TG mildly elevated. Discussed dietary modifications. #MDS- will follow labs. Followed by Dr. Clarke yearly- recent visit 11/2024. #Anemia- On B12 injections monthly as well as iron supplementation. Followed by Dr. Clarke. Case discussed with collaborating physician Devon Sullivan who reviewed the assessment and plan. Chart, medications, labs, vital signs reviewed. Dictation was accomplished with the use of PLD[employer] voice recognition software, prone to medical misidentifications and grammatical errors. This is unintentional and the practitioner does try to identify and correct these, but some could still be present. Please do not hesitate to contact practitioner for clarification. All questions answered to patients satisfaction. Patient verbalized understanding of diagnosis and treatments explained. To call sooner prior to next visit it any questions/concerns arise. 01/28/2025 Mixed hyperlipidemia (ICD-10 - E78.2) #HTN- BP well controlled on current regimen. #IAN to LAD- Stent placed 11/25/23 LAD. Now off Brilinta. Denies CP or SOB. Had recent follow up with Dr. Contreras last month and will see him q 6 months. #CHF- Breathing has been stable. No edema. Lungs clear on exam. Follow up with cardiology. #ICD in place- placed 12/[address] Gonzales. Well healed. Had interrigation done at recent cardiology visit. #Cardiomyopathy- Followed by Dr. Contreras. ICD in place. # DM- home readings well controlled. Continue farxiga and metformin. A1C 6.4, down from 6.7 at last visit. Recheck in 3 months. #Hyperlipidemia- on statin- Lipids well controlled. Schedule MWV with labs prior. #MDS- will follow labs. Followed by Dr. Clarke yearly- recent visit 11/2024. #Anemia- On B12 injections monthly as well as iron supplementation. Followed by Dr. Clarke. Case discussed with collaborating physician Devon Sullivan who reviewed the assessment and plan. Chart, medications, labs, vital signs reviewed. Dictation was accomplished with the use of P[employer] voice recognition software, prone to medical misidentifications and grammatical errors. This is unintentional and the practitioner does try to identify and correct these, but some could still be present. Please do not hesitate to contact practitioner for clarification. All questions answered to patients satisfaction. Patient verbalized understanding of diagnosis and treatments explained. To call sooner prior to next visit it any questions/concerns arise. 10/29/2024 Presence of drug coated stent in LAD coronary artery (ICD-10 - Z95.5) #HTN- BP well controlled on current regimen. #IAN to LAD- Stent placed 11/25/23 LAD. Now on Brilinta and ASA. Denies CP or SOB. Follow up wiht Dr. Contreras. PLans to take him off Brilinta in Nov and will clear him for colonoscopy after that. #CHF- Breathing has been stable. No edema. Lungs clear on exam. Follow up with cardiology. #ICD in place- placed 12/[address] Gonzales. Well healed. #Cardiomyopathy- Recent cardiac MRI and subsequent cath with stent placement as above. Follow-up with [facility] cardiology # DM- home readings well controlled. Continue farxiga and metformin. Hemoglobin A1c is up to 7.5 continue to monitor #Hyperlipidemia- on statin- Lipids well controlled. Check f/u labs prior to next visit. #MDS- Labs remain stable Will follow-up on x-ray for the foot pain. 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 #IAN to LAD- Stent placed 11/25/23 LAD. Now off Brilinta. Denies CP or SOB. Had recent follow up with Dr. Contreras last month and will see him q 6 months. #CHF- Breathing has been stable. No edema. Lungs clear on exam. Follow up with cardiology. #ICD in place- placed 12/[address] Gonzales. Well healed. Had interrigation done at recent cardiology visit. #Cardiomyopathy- Followed by Dr. Contreras. ICD in place. # DM- home readings well controlled. Continue farxiga and metformin. A1C 6.4, down from 6.7 at last visit. Recheck in 3 months. #Hyperlipidemia- on statin- Lipids well controlled. Schedule MWV with labs prior. #MDS- will follow labs. Followed by Dr. Clarke yearly- recent visit 11/2024. #Anemia- On B12 injections monthly as well as iron supplementation. Followed by Dr. Clarke. Case discussed with collaborating physician Devon Sullivan who reviewed the assessment and plan. Chart, medications, labs, vital signs reviewed. Dictation was accomplished with the use of [employer] voice recognition software, prone to medical misidentifications and grammatical errors. This is unintentional and the practitioner does try to identify and correct these, but some could still be present. Please do not hesitate to contact practitioner for clarification. All questions answered to patients satisfaction. Patient verbalized understanding of diagnosis and treatments explained. To call sooner prior to next visit it any questions/concerns arise. 10/29/2024 Chronic systolic heart failure (ICD-10 - I50.) #HTN- BP well controlled on current regimen. #IAN to LAD- Stent placed 11/25/23 LAD. Now on Brilinta and ASA. Denies CP or SOB. Follow up wiht Dr. Contreras. PLans to take him off Brilinta in Nov and will clear him for colonoscopy after that. #CHF- Breathing has been stable. No edema. Lungs clear on exam. Follow up with cardiology. #ICD in place- placed 12/[address] Gonzales. Well healed. #Cardiomyopathy- Recent cardiac MRI and subsequent cath with stent placement as above. Follow-up with [facility] cardiology # DM- home readings well controlled. Continue farxiga and metformin. Hemoglobin A1c is up to 7.5 continue to monitor #Hyperlipidemia- on statin- Lipids well controlled. Check f/u labs prior to next visit. #MDS- Labs remain stable Will follow-up on x-ray for the foot pain. Patient will come back in 3 months with office hemoglobin A1c 05/04/2025 Mixed hyperlipidemia (ICD-10 - E78.2) #Annual wellness. Complex medical history but in stable health. Colonoscopy up-to-date November 2024 with repeat due November 2027. Will be due for updated tetanus vaccine next year. Healthcare proxy is up-to-date in chart. Continue to work on healthy diet and exercise as tolerated. PHQ-9 . AUDIT-C 12/02. #HTN- BP well controlled on current regimen. #IAN to LAD- Stent placed 11/25/23 LAD. Now off Brilinta. Denies CP or SOB. Had recent follow up with Dr. Contreras and will see him q 6 months. #CHF- Breathing has been stable. No edema. Lungs clear on exam. Follow up with cardiology. #ICD in place- placed 12/[address] Gonzales. Well healed. #Cardiomyopathy- Followed by Dr. Contreras. ICD in place. # DM- home readings well controlled. Continue farxiga and metformin. A1C 6.4, down from 6.7 at last visit. Recheck in 3 months #Hyperlipidemia- on statin- Lipids well controlled. TG mildly elevated. Discussed dietary modifications. #MDS- will follow labs. Followed by Dr. Clarke yearly- recent visit 11/2024. #Anemia- On B12 injections monthly as well as iron supplementation. Followed by Dr. Clarke. Case discussed with collaborating physician Devon Sullivan who reviewed the assessment and plan. Chart, medications, labs, vital signs reviewed. Dictation was accomplished with the use of PLDT voice recognition software, prone to medical misidentifications and grammatical errors. This is unintentional and the practitioner does try to identify and correct these, but some could still be present. Please do not hesitate to contact practitioner for clarification. All questions answered to patients satisfaction. Patient verbalized understanding of diagnosis and treatments explained. To call sooner prior to next visit it any questions/concerns arise. 08/17/2025 Myelodysplastic syndrome, unspecified (ICD-10 - D46.9) #RLE edema- He has noticed right leg swelling over the last 2 to 3 weeks. No injury. Denies any pain warmth to the area. Wound seems to be changing just staying slightly larger than his left lower extremity. Will get ultrasound to rule out DVT today. Follow-up pending results. Denies any chest pain or shortness of breath. Discussed ED precautions with any new or worsening symptoms. He is comfortable with plan. #HTN- BP well controlled on current regimen. #IAN to LAD- Stent placed 11/25/23 LAD. Now off Brilinta. Denies CP or SOB. Had recent follow up with Dr. Contreras and will see him q 6 months. #CHF- Breathing has been stable. Lungs clear on exam. Follow up with cardiology. #Cardiomyopathy- Followed by Dr. Contreras. ICD in place. # DM- home readings well controlled. Continue farxiga and metformin. A1C 5.6, down from 6.4. We did discuss option of cutting back on Metformin, however he prefers to remain at current dose for now. Recheck in 3 months #Hyperlipidemia- on statin- Lipids well controlled. TG mildly elevated. Discussed dietary modifications. #MDS- will follow labs. Followed by Dr. Clarke yearly- last visit 11/2024. #Anemia- On B12 injections monthly as well as iron supplementation. Followed by Dr. Clarke. #Left hip pain. Ongoing for several months. No known injury. Discussed options/workup. Preference for referall to Ortho. WIll refer to [facility]. Case discussed with collaborating physician Devon Sullivan who reviewed the assessment and plan. Chart, medications, labs, vital signs reviewed. Dictation was accomplished with the use of PLD[employer] voice recognition software, prone to medical misidentifications and grammatical errors. This is unintentional and the practitioner does try to identify and correct these, but some could still be present. Please do not hesitate to contact practitioner for clarification. All questions answered to patients satisfaction. Patient verbalized understanding of diagnosis and treatments explained. To call sooner prior to next visit it any questions/concerns arise. 08/17/2025 Stage 3a chronic kidney disease (CKD) (ICD-10 - N18.31) #RLE edema- He has noticed right leg swelling over the last 2 to 3 weeks. No injury. Denies any pain warmth to the area. Wound seems to be changing just staying slightly larger than his left lower extremity. Will get ultrasound to rule out DVT today. Follow-up pending results. Denies any chest pain or shortness of breath. Discussed ED precautions with any new or worsening symptoms. He is comfortable with plan. #HTN- BP well controlled on current regimen. #IAN to LAD- Stent placed 11/25/23 LAD. Now off Brilinta. Denies CP or SOB. Had recent follow up with Dr. Contreras and will see him q 6 months. #CHF- Breathing has been stable. Lungs clear on exam. Follow up with cardiology. #Cardiomyopathy- Followed by Dr. Contreras. ICD in place. # DM- home readings well controlled. Continue farxiga and metformin. A1C 5.6, down from 6.4. We did discuss option of cutting back on Metformin, however he prefers to remain at current dose for now. Recheck in 3 months #Hyperlipidemia- on statin- Lipids well controlled. TG mildly elevated. Discussed dietary modifications. #MDS- will follow labs. Followed by Dr. Clarke yearly- last visit 11/2024. #Anemia- On B12 injections monthly as well as iron supplementation. Followed by Dr. Clarke. #Left hip pain. Ongoing for several months. No known injury. Discussed options/workup. Preference for referall to Ortho. WIll refer to [facility]. Case discussed with collaborating physician Devon Sullivan who reviewed the assessment and plan. Chart, medications, labs, vital signs reviewed. Dictation was accomplished with the use of P[employer] voice recognition software, prone to medical misidentifications and grammatical errors. This is unintentional and the practitioner does try to identify and correct these, but some could still be present. Please do not hesitate to contact practitioner for clarification. All questions answered to patients satisfaction. Patient verbalized understanding of diagnosis and treatments explained. To call sooner prior to next visit it any questions/concerns arise. 05/04/2025 Myelodysplastic syndrome, unspecified (ICD-10 - D46.9) #Annual wellness. Complex medical history but in stable health. Colonoscopy up-to-date November 2024 with repeat due November 2027. Will be due for updated tetanus vaccine next year. Healthcare proxy is up-to-date in chart. Continue to work on healthy diet and exercise as tolerated. PHQ-9 . AUDIT-C 12/02. #HTN- BP well controlled on current regimen. #IAN to LAD- Stent placed 11/25/23 LAD. Now off Brilinta. Denies CP or SOB. Had recent follow up with Dr. Contreras and will see him q 6 months. #CHF- Breathing has been stable. No edema. Lungs clear on exam. Follow up with cardiology. #ICD in place- placed 12/[address] Gonzales. Well healed. #Cardiomyopathy- Followed by Dr. Contreras. ICD in place. # DM- home readings well controlled. Continue farxiga and metformin. A1C 6.4, down from 6.7 at last visit. Recheck in 3 months #Hyperlipidemia- on statin- Lipids well controlled. TG mildly elevated. Discussed dietary modifications. #MDS- will follow labs. Followed by Dr. Clarke yearly- recent visit 11/2024. #Anemia- On B12 injections monthly as well as iron supplementation. Followed by Dr. Clarke. Case discussed with collaborating physician Devon Sullivan who reviewed the assessment and plan. Chart, medications, labs, vital signs reviewed. Dictation was accomplished with the use of P[employer] voice recognition software, prone to medical misidentifications and grammatical errors. This is unintentional and the practitioner does try to identify and correct these, but some could still be present. Please do not hesitate to contact practitioner for clarification. All questions answered to patients satisfaction. Patient verbalized understanding of diagnosis and treatments explained. To call sooner prior to next visit it any questions/concerns arise. 10/29/2024 ICD (implantable cardioverter-defib rillator) in place (ICD-10 - Z95.810) #HTN- BP well controlled on current regimen. #IAN to LAD- Stent placed 11/25/23 LAD. Now on Brilinta and ASA. Denies CP or SOB. Follow up wiht Dr. Contreras. PLans to take him off Brilinta in Nov and will clear him for colonoscopy after that. #CHF- Breathing has been stable. No edema. Lungs clear on exam. Follow up with cardiology. #ICD in place- placed 12/[address] Gonzales. Well healed. #Cardiomyopathy- Recent cardiac MRI and subsequent cath with stent placement as above. Follow-up with [facility] cardiology # DM- home readings well controlled. Continue farxiga and metformin. Hemoglobin A1c is up to 7.5 continue to monitor #Hyperlipidemia- on statin- Lipids well controlled. Check f/u labs prior to next visit. #MDS- Labs remain stable Will follow-up on x-ray for the foot pain. Patient will come back in 3 months with office hemoglobin A1c 01/28/2025 Myelodysplastic syndrome, unspecified (ICD-10 - D46.9) #HTN- BP well controlled on current regimen. #IAN to LAD- Stent placed 11/25/23 LAD. Now off Brilinta. Denies CP or SOB. Had recent follow up with Dr. Contreras last month and will see him q 6 months. #CHF- Breathing has been stable. No edema. Lungs clear on exam. Follow up with cardiology. #ICD in place- placed 12/[address] Gonzales. Well healed. Had interrigation done at recent cardiology visit. #Cardiomyopathy- Followed by Dr. Contreras. ICD in place. # DM- home readings well controlled. Continue farxiga and metformin. A1C 6.4, down from 6.7 at last visit. Recheck in 3 months. #Hyperlipidemia- on statin- Lipids well controlled. Schedule MWV with labs prior. #MDS- will follow labs. Followed by Dr. Clarke yearly- recent visit 11/2024. #Anemia- On B12 injections monthly as well as iron supplementation. Followed by Dr. Clarke. Case discussed with collaborating physician Devon Sullivan who reviewed the assessment and plan. Chart, medications, labs, vital signs reviewed. Dictation was accomplished with the use of [employer] voice recognition software, prone to medical misidentifications and grammatical errors. This is unintentional and the practitioner does try to identify and correct these, but some could still be present. Please do not hesitate to contact practitioner for clarification. All questions answered to patients satisfaction. Patient verbalized understanding of diagnosis and treatments explained. To call sooner prior to next visit it any questions/concerns arise. 10/29/2024 Cardiomyopathy, unspecified type (ICD-10 - I42.9) #HTN- BP well controlled on current regimen. #IAN to LAD- Stent placed 11/25/23 LAD. Now on Brilinta and ASA. Denies CP or SOB. Follow up wiht Dr. Contreras. PLans to take him off Brilinta in Nov and will clear him for colonoscopy after that. #CHF- Breathing has been stable. No edema. Lungs clear on exam. Follow up with cardiology. #ICD in place- placed 12/[address] Gonzales. Well healed. #Cardiomyopathy- Recent cardiac MRI and subsequent cath with stent placement as above. Follow-up with [facility] cardiology # DM- home readings well controlled. Continue farxiga and metformin. Hemoglobin A1c is up to 7.5 continue to monitor #Hyperlipidemia- on statin- Lipids well controlled. Check f/u labs prior to next visit. #MDS- Labs remain stable Will follow-up on x-ray for the foot pain. Patient will come back in 3 months with office hemoglobin A1c 01/28/2025 Chronic anemia (ICD-10 - D64.9) #HTN- BP well controlled on current regimen. #IAN to LAD- Stent placed 11/25/23 LAD. Now off Brilinta. Denies CP or SOB. Had recent follow up with Dr. Contreras last month and will see him q 6 months. #CHF- Breathing has been stable. No edema. Lungs clear on exam. Follow up with cardiology. #ICD in place- placed 12/[address] Gonzales. Well healed. Had interrigation done at recent cardiology visit. #Cardiomyopathy- Followed by Dr. Contreras. ICD in place. # DM- home readings well controlled. Continue farxiga and metformin. A1C 6.4, down from 6.7 at last visit. Recheck in 3 months. #Hyperlipidemia- on statin- Lipids well controlled. Schedule MWV with labs prior. #MDS- will follow labs. Followed by Dr. Clarke yearly- recent visit 11/2024. #Anemia- On B12 injections monthly as well as iron supplementation. Followed by Dr. Clarke. Case discussed with collaborating physician Devon Sullivan who reviewed the assessment and plan. Chart, medications, labs, vital signs reviewed. Dictation was accomplished with the use of P[employer] voice recognition software, prone to medical misidentifications and grammatical errors. This is unintentional and the practitioner does try to identify and correct these, but some could still be present. Please do not hesitate to contact practitioner for clarification. All questions answered to patients satisfaction. Patient verbalized understanding of diagnosis and treatments explained. To call sooner prior to next visit it any questions/concerns arise. 05/04/2025 Stage 3a chronic kidney disease (CKD) (ICD-10 - N18.31) #Annual wellness. Complex medical history but in stable health. Colonoscopy up-to-date November 2024 with repeat due November 2027. Will be due for updated tetanus vaccine next year. Healthcare proxy is up-to-date in chart. Continue to work on healthy diet and exercise as tolerated. PHQ-9 . AUDIT-C 12/02. #HTN- BP well controlled on current regimen. #IAN to LAD- Stent placed 11/25/23 LAD. Now off Brilinta. Denies CP or SOB. Had recent follow up with Dr. Contreras and will see him q 6 months. #CHF- Breathing has been stable. No edema. Lungs clear on exam. Follow up with cardiology. #ICD in place- placed 12/[address] Gonzales. Well healed. #Cardiomyopathy- Followed by Dr. Contreras. ICD in place. # DM- home readings well controlled. Continue farxiga and metformin. A1C 6.4, down from 6.7 at last visit. Recheck in 3 months #Hyperlipidemia- on statin- Lipids well controlled. TG mildly elevated. Discussed dietary modifications. #MDS- will follow labs. Followed by Dr. Clarke yearly- recent visit 11/2024. #Anemia- On B12 injections monthly as well as iron supplementation. Followed by Dr. Clarke. Case discussed with collaborating physician Devon Sullivan who reviewed the assessment and plan. Chart, medications, labs, vital signs reviewed. Dictation was accomplished with the use of [employer] voice recognition software, prone to medical misidentifications and grammatical errors. This is unintentional and the practitioner does try to identify and correct these, but some could still be present. Please do not hesitate to contact practitioner for clarification. All questions answered to patients satisfaction. Patient verbalized understanding of diagnosis and treatments explained. To call sooner prior to next visit it any questions/concerns arise. 08/17/2025 Left hip pain (ICD-10 - M25.552) #RLE edema- He has noticed right leg swelling over the last 2 to 3 weeks. No injury. Denies any pain warmth to the area. Wound seems to be changing just staying slightly larger than his left lower extremity. Will get ultrasound to rule out DVT today. Follow-up pending results. Denies any chest pain or shortness of breath. Discussed ED precautions with any new or worsening symptoms. He is comfortable with plan. #HTN- BP well controlled on current regimen. #IAN to LAD- Stent placed 11/25/23 LAD. Now off Brilinta. Denies CP or SOB. Had recent follow up with Dr. Contreras and will see him q 6 months. #CHF- Breathing has been stable. Lungs clear on exam. Follow up with cardiology. #Cardiomyopathy- Followed by Dr. Contreras. ICD in place. # DM- home readings well controlled. Continue farxiga and metformin. A1C 5.6, down from 6.4. We did discuss option of cutting back on Metformin, however he prefers to remain at current dose for now. Recheck in 3 months #Hyperlipidemia- on statin- Lipids well controlled. TG mildly elevated. Discussed dietary modifications. #MDS- will follow labs. Followed by Dr. Clarke yearly- last visit 11/2024. #Anemia- On B12 injections monthly as well as iron supplementation. Followed by Dr. Clarke. #Left hip pain. Ongoing for several months. No known injury. Discussed options/workup. Preference for referall to Ortho. WIll refer to [facility]. Case discussed with collaborating physician Devon Sullivan who reviewed the assessment and plan. Chart, medications, labs, vital signs reviewed. Dictation was accomplished with the use of P[employer] voice recognition software, prone to medical misidentifications and grammatical errors. This is unintentional and the practitioner does try to identify and correct these, but some could still be present. Please do not hesitate to contact practitioner for clarification. All questions answered to patients satisfaction. Patient verbalized understanding of diagnosis and treatments explained. To call sooner prior to next visit it any questions/concerns arise. 05/04/2025 Encounter for screening for other disorder (ICD-10 - Z13.89) #Annual wellness. Complex medical history but in stable health. Colonoscopy up-to-date November 2024 with repeat due November 2027. Will be due for updated tetanus vaccine next year. Healthcare proxy is up-to-date in chart. Continue to work on healthy diet and exercise as tolerated. PHQ-9 . AUDIT-C 12/02. #HTN- BP well controlled on current regimen. #IAN to LAD- Stent placed 11/25/23 LAD. Now off Brilinta. Denies CP or SOB. Had recent follow up with Dr. Contreras and will see him q 6 months. #CHF- Breathing has been stable. No edema. Lungs clear on exam. Follow up with cardiology. #ICD in place- placed 12/[address] Gonzales. Well healed. #Cardiomyopathy- Followed by Dr. Contreras. ICD in place. # DM- home readings well controlled. Continue farxiga and metformin. A1C 6.4, down from 6.7 at last visit. Recheck in 3 months #Hyperlipidemia- on statin- Lipids well controlled. TG mildly elevated. Discussed dietary modifications. #MDS- will follow labs. Followed by Dr. Clarke yearly- recent visit 11/2024. #Anemia- On B12 injections monthly as well as iron supplementation. Followed by Dr. Clarke. Case discussed with collaborating physician Devon Sullivan who reviewed the assessment and plan. Chart, medications, labs, vital signs reviewed. Dictation was accomplished with the use of P[employer] voice recognition software, prone to medical misidentifications and grammatical errors. This is unintentional and the practitioner does try to identify and correct these, but some could still be present. Please do not hesitate to contact practitioner for clarification. All questions answered to patients satisfaction. Patient verbalized understanding of diagnosis and treatments explained. To call sooner prior to next visit it any questions/concerns arise. 10/29/2024 Testicular hypofunction (ICD-10 - E29.1) #HTN- BP well controlled on current regimen. #IAN to LAD- Stent placed 11/25/23 LAD. Now on Brilinta and ASA. Denies CP or SOB. Follow up wiht Dr. Contreras. PLans to take him off Brilinta in Nov and will clear him for colonoscopy after that. #CHF- Breathing has been stable. No edema. Lungs clear on exam. Follow up with cardiology. #ICD in place- placed 12/[address] Gonzales. Well healed. #Cardiomyopathy- Recent cardiac MRI and subsequent cath with stent placement as above. Follow-up with [facility] cardiology # DM- home readings well controlled. Continue farxiga and metformin. Hemoglobin A1c is up to 7.5 continue to monitor #Hyperlipidemia- on statin- Lipids well controlled. Check f/u labs prior to next visit. #MDS- Labs remain stable Will follow-up on x-ray for the foot pain. Patient will come back in 3 months with office hemoglobin A1c 05/04/2025 Alcohol screening (ICD-10 - Z13.39) #Annual wellness. Complex medical history but in stable health. Colonoscopy up-to-date November 2024 with repeat due November 2027. Will be due for updated tetanus vaccine next year. Healthcare proxy is up-to-date in chart. Continue to work on healthy diet and exercise as tolerated. PHQ-9 . AUDIT-C 12/02. #HTN- BP well controlled on current regimen. #IAN to LAD- Stent placed 11/25/23 LAD. Now off Brilinta. Denies CP or SOB. Had recent follow up with Dr. Contreras and will see him q 6 months. #CHF- Breathing has been stable. No edema. Lungs clear on exam. Follow up with cardiology. #ICD in place- placed 12/[address] Gonzales. Well healed. #Cardiomyopathy- Followed by Dr. Contreras. ICD in place. # DM- home readings well controlled. Continue farxiga and metformin. A1C 6.4, down from 6.7 at last visit. Recheck in 3 months #Hyperlipidemia- on statin- Lipids well controlled. TG mildly elevated. Discussed dietary modifications. #MDS- will follow labs. Followed by Dr. Clarke yearly- recent visit 11/2024. #Anemia- On B12 injections monthly as well as iron supplementation. Followed by Dr. Clarke. Case discussed with collaborating physician Devon Sullivan who reviewed the assessment and plan. Chart, medications, labs, vital signs reviewed. Dictation was accomplished with the use of P[employer] voice recognition software, prone to medical misidentifications and grammatical errors. This is unintentional and the practitioner does try to identify and correct these, but some could still be present. Please do not hesitate to contact practitioner for clarification. All questions answered to patients satisfaction. Patient verbalized understanding of diagnosis and treatments explained. To call sooner prior to next visit it any questions/concerns arise. Plan Of Treatment Pending Test Test Name Order Date Ultrasound : Leg, right 08/17/2025 Hemoglobin A1c 11/19/2018 Hemoglobin A1c 03/20/2019 Hemoglobin A1c 11/02/2019 Microalb/Creat Ratio, Randm Ur Lipid Panel 11/02/2019 Lipid Panel 03/20/2019 Comp. Metabolic Panel (14) 03/20/2019 Comp. Metabolic Panel (14) 11/02/2019 Basic Metabolic Panel (8) 11/19/2018 CBC 03/20/2019 CBC 11/02/2019 CBC 11/15/2017 Urinalysis 11/02/2019 Urinalysis 03/20/2019 25OH VITAMIN D 11/15/2022 BASIC METABOLIC PANEL 07/19/2022 CBC (COMPLETE BLOOD COUNT) 11/15/2022 CBC (COMPLETE BLOOD COUNT) 02/27/2021 CBC (COMPLETE BLOOD COUNT) 01/15/2023 CBC (COMPLETE BLOOD COUNT) 07/02/2023 CBC (COMPLETE BLOOD COUNT) 07/21/2019 CBC (COMPLETE BLOOD COUNT) 07/17/2018 CBC (COMPLETE BLOOD COUNT) 06/24/2020 CBC (COMPLETE BLOOD COUNT) 11/15/2017 CBC (COMPLETE BLOOD COUNT) 10/28/2020 CBC (COMPLETE BLOOD COUNT) WITH DIFF CBC (COMPLETE BLOOD COUNT) WITH DIFF COMPREHENSIVE METABOLIC PANEL 07/15/2024 COMPREHENSIVE METABOLIC PANEL 08/06/2023 COMPREHENSIVE METABOLIC PANEL 07/02/2023 COMPREHENSIVE METABOLIC PANEL 01/15/2023 COMPREHENSIVE METABOLIC PANEL 10/28/2020 COMPREHENSIVE METABOLIC PANEL 02/27/2021 COMPREHENSIVE METABOLIC PANEL 11/15/2022 COMPREHENSIVE METABOLIC PANEL 06/24/2020 COMPREHENSIVE METABOLIC PANEL 07/17/2018 COMPREHENSIVE METABOLIC PANEL 07/21/2019 HEMOGLOBIN A1C 07/21/2019 HEMOGLOBIN A1C 07/17/2018 HEMOGLOBIN A1C 06/24/2020 HEMOGLOBIN A1C 10/28/2020 HEMOGLOBIN A1C 11/15/2017 HEMOGLOBIN A1C 11/15/2022 HEMOGLOBIN A1C 02/27/2021 HEMOGLOBIN A1C 03/15/2022 HEMOGLOBIN A1C 07/19/2022 HEMOGLOBIN A1C 05/30/2021 HEMOGLOBIN A1C 04/02/2023 HEMOGLOBIN A1C 07/15/2024 LIPID PANEL 08/06/2023 LIPID PANEL 07/02/2023 LIPID PANEL 11/15/2022 LIPID PANEL 11/15/2017 LIPID PANEL 10/28/2020 LIPID PANEL 06/24/2020 LIPID PANEL 07/17/2018 LIPID PANEL 07/21/2019 LIPID PANEL 07/15/2024 MAGNESIUM 01/15/2023 MICROALBUMIN, URINE 11/15/2022 MICROALBUMIN, URINE 05/30/2021 MICROALBUMIN, URINE 07/17/2018 MICROALBUMIN, URINE 11/15/2017 TSH 11/15/2022 URINALYSIS W/REFLEX CULTURE 08/06/2023 URINALYSIS, COMPLETE 10/28/2020 URINALYSIS, COMPLETE 06/24/2020 URINALYSIS, COMPLETE 07/17/2018 URINALYSIS, COMPLETE 07/21/2019 Testosterone Total 07/15/2024 CT Chest w/o Contrast 01/29/2022 XR Ankle 3+ Views RT 11/03/2024 XR Foot 2 Views RT 10/29/2024 UA WITH CULTURE IF INDICATED 01/28/2025 LIPID PANEL, STANDARD 01/28/2025 LIPID PANEL, STANDARD 08/17/2025 COMPREHENSIVE METABOLIC PANEL 08/17/2025 COMPREHENSIVE METABOLIC PANEL 05/04/2025 COMPREHENSIVE METABOLIC PANEL 01/28/2025 BASIC METABOLIC PANEL 11/28/2022 CBC (INCLUDES DIFF/PLT) 11/28/2022 CBC (INCLUDES DIFF/PLT) 01/28/2025 CBC (INCLUDES DIFF/PLT) 08/17/2025 HEMOGLOBIN A1c 08/17/2025 HEMOGLOBIN A1c 01/28/2025 PSA (FREE AND TOTAL) 01/28/2025 B TYPE NATRIURETIC PEPTIDE (BNP) 023 COMPLETE URINALYSIS 07/02/2023 COMPLETE URINALYSIS 11/15/2022 Future Test Test Name Order Date BASIC METABOLIC PANEL 01/25/2022 HEMOGLOBIN A1C 01/25/2022 Next Appt Details Provider Name:Rossy Durand, 0 11/04/2025 09:00:00 AM, [address], [address], [place], [address], Provider Name:Rossy Durand, 0 05/10/2026 09:30:00 AM, [address], [address], [place], [address], Insurance Providers Payer Name Payer Address Payer Phone Subscriber Number Group Number Insured Name Patient Relationship to Insured Coverage Start Date Coverage End Date [employer] or Options [address] [place] [id number] [phone] [id number] MILDRED [place] Self - patient is the insured Medical (General) History Medical History History ICD Code anemia Arthritis hypercholesterolemia hypertension vitamin D deficiency type II diabetes hypogonadism Myelodysplastic syndrome with Anemia Surgical History Surgery Date(Month/Year) left hip replacement right hip replacement 2012 tai normal Colonoscopy at [facility] 2012 ICD placement 12/2023 Stent placement 11/2023 Hospitalization History Reason Date(Month/Year) Stent heart place 11/[address] 12/2023 congestive heart failure
== END 2025-10-12 10:35 | disposition home or self-care (01) ==
LOC: HO.HUSH 09:13
PROVIDERS: PCP Internal Medicine; Visit Provider Urology
DX: E11.69 Type 2 diabetes mellitus with other specified complication (principal); N52.1 Erectile dysfunction due to diseases classified elsewhere; E29.1 Testicular hypofunction
CPT/HCPCS: 99213; G2211

== ENCOUNTER → 2025-10-12 09:13 | Outpatient (BNVA) | payer OTHER, SELFPAY | PROVIDERS: PCP Internal Medicine; Visit Provider Urology | DX: E11.69 Type 2 diabetes mellitus with other specified complication (principal); N52.1 Erectile dysfunction due to diseases classified elsewhere; E29.1 Testicular hypofunction; Z79.899 Other long term (current) drug therapy | CPT/HCPCS: 99212 ==